=== PATIENT | male | born 1950 | race Caucasian/White ===

== ENCOUNTER 2017-01-07 17:03 | Emergency (ER) | payer MEDICARE, OTHER ==
[2017-01-07] MEDS ORDERED: SODIUM CHLORIDE 0.9% 1,000 ML IV ONE (17:36)
[2017-01-07] MEDS ORDERED: predniSONE 20 MG TABLET PO STA (17:36)
[2017-01-07] MEDS ORDERED: ALBUTEROL NEB 2.5 MG/3 ML INH STA ×2 (17:36→19:30)
[2017-01-07] MEDS ORDERED: ACETAMINOPHEN 325 MG TABLET PO STA (17:42)
[2017-01-07] MEDS ORDERED: ALBUTEROL NEB 2.5 MG/3 ML INH ONE (17:51)
[2017-01-07] MEDS ORDERED: predniSONE 20 MG TABLET ONE (18:31)
[2017-01-07] MEDS ORDERED: ACETAMINOPHEN 325 MG TABLET PO ONE (18:32)
[2017-01-07] MEDS ORDERED: ALBUTEROL 8 GM INHALER INH STA (18:55)
[2017-01-07] MEDS ORDERED: ALBUTEROL 8 GM INHALER INH ONE (19:25)
[2017-01-07] MEDS ORDERED: LEVALBUTEROL 1.25 MG INH STA (19:31)
[2017-01-07] MEDS ORDERED: LEVALBUTEROL 1.25 MG INH ONE (19:32)
== END 2017-01-07 21:11 | disposition home or self-care (01) ==
DX: J06.9 Acute upper respiratory infection, unspecified (principal); B97.89 Other viral agents as the cause of diseases classified elsewhere; J44.1 Chronic obstructive pulmonary disease with (acute) exacerbation; J45.901 Unspecified asthma with (acute) exacerbation; I10 Essential (primary) hypertension; Z86.010 Personal history of colon polyps; Z87.442 Personal history of urinary calculi; Z87.891 Personal history of nicotine dependence
CPT/HCPCS: 36415; 71010; 80053; 83690; 85025; 93005; 93010; 94640; 99283; 99284; A9270; J7512; J7613

== ENCOUNTER 2017-05-16 08:00 | Outpatient (CLI) | payer MEDICARE ==
--- NOTE | 2017-05-16 09:29 | Ultrasound Report ---
AORTA SCREENIN05/16/2017 CLINICAL INDICATION: Smoking history. TECHNIQUE: Real-time scanning was performed with business services sales representative static images obtained. FINDINGS: The abdominal aorta is normal in caliber, measuring 2.7 cm proximally , 1.9 cm in the mid portion, and 1.7 cm distally. The iliacs are normal in caliber. No free fluid is present. IMPRESSION: NO EVIDENCE OF ABDOMINAL AORTIC ANEURYSM. JOB #: [id number] [facility] JOB #: [id number] [facility]
== END 2017-05-16 08:01 | disposition home or self-care (01) ==
LOC: DI 08:00
PROVIDERS: ATTEND Physician Assistant
DX: Z13.6 Encounter for screening for cardiovascular disorders (principal); Z87.891 Personal history of nicotine dependence
CPT/HCPCS: 76706; 93005

== ENCOUNTER 2017-08-17 10:48 | Day surgery (SDC) | payer MEDICARE ==
[2017-08-17] MEDS ORDERED: LACTATED RINGERS 1,000 ML IV ONE (11:09)
[2017-08-17] MEDS ORDERED: fentaNYL 100 MCG/2 ML VIAL IVP ONE (12:06)
[2017-08-17] MEDS ORDERED: MIDAZOLAM 2 MG/2 ML VIAL IVP ONE (12:06)
[2017-08-17 13:16] VITALS: BP 118/81
== END 2017-08-17 10:49 | disposition home or self-care (01) ==
LOC: SDS 10:48
PROVIDERS: ATTEND Internal Medicine
PROC: 0DJD8ZZ Inspection of Lower Intestinal Tract, Via Natural or Artificial Opening Endoscopic (ICD-10-PCS; principal; 2017-08-17 12:00)
DX: R19.5 Other fecal abnormalities (principal); K62.89 Other specified diseases of anus and rectum
CPT/HCPCS: 45378; J7120

== ENCOUNTER 2018-01-05 02:01 | Emergency (ER) | payer MEDICARE ==
[2018-01-05 02:08] VITALS: BP 137/88
[2018-01-05] MEDS ORDERED: LIDOCAINE 2% 10 ML MDV SUBQ STA (02:10)
--- NOTE | 2018-01-05 02:51 | ED Physician Documentation ---
PD HPI LOWER EXT INJURY - Stated complaint Stated Complaint: R FOOT MIDDLE TOE INJURY - Chief complaint Chief Complaint: Ext Problem - History obtained from History obtained from: Patient, Family - History of Present Illness PD HPI LOW EXT INJURY LOCATION: Right, Toe Type of injury: Blunt / blow Where injury occurred: Home Timing - onset: Today Timing - details: Abrupt onset, Still present Worsened by: Moving, Palpating Similar symptoms before: Has not had sx before Recently seen: Not recently seen - Additional information Additional information: Patient is a 67 year old male with no significant past medical history who is presenting to the emergency department for toe pain. patient heard an alarm go off in his house so he got up to check on it. On his way back to bed he stubbed his toe causing deformity. Review of Systems Ten Systems: 10 systems reviewed and negative Musculoskeletal: reports: Extremity pain, Extremity swelling PD PAST MEDICAL HISTORY - Past Medical History Cardiovascular: None Respiratory: Asthma, COPD Neuro: None Endocrine/Autoimmune: None GI: None : None HEENT: None Psych: None Musculoskeletal: None Derm: None - Past Surgical History Past Surgical History: Yes General: Colonoscopy Ortho: Hip replacement HEENT: Tonsil/Adenoidectomy - Present Medications Home Medications: Ambulatory Orders Medication Instructions Recorded Confirmed Albuterol [Ventolin Hfa] 2 puffs INH Q4H PRN 03/28/13 08/16/17 Fluticasone 110 Mcg [Flovent] 2 puffs INH BID 09/22/16 08/17/17 - Allergies Allergies/Adverse Reactions: Allergies Allergy/AdvReac Type Severity Reaction Status Date / Time No Known Drug Allergies Allergy Verified 09/21/16 18:04 - Social History Does the pt smoke?: No Smoking Status: Never smoker Does the pt drink ETOH?: No Does the pt have substance abuse?: No - Immunizations Immunizations are current?: Yes PD ED PE NORMAL - Vitals Vital signs reviewed: Yes - General General: Alert and oriented X 3, No acute distress - HEENT HEENT: Atraumatic - Cardiac Cardiac: RRR - Respiratory Respiratory: No respiratory distress - Abdomen Abdomen: Soft - Derm Derm: Normal color - Neuro Neuro: Alert and oriented X 3 Eye Opening: Spontaneous Motor: Obeys Commands Verbal: Oriented GCS Score: 15 PD ED PE EXPANDED - Extremities Extremities: Right toe(s) (gross deformity of third digit rotated laterally ) Results - Vitals Vitals: Vital Signs - 24 hr 01/05/18 02:05 Temperature 36.5 C Heart Rate 68 Respiratory 15 Rate Blood Pressure 137/88 H O2 Saturation 99 Oxygen O2 Source Room air - Rads (name of study) toe x-ray Radiology: EMP read indepedently (fracture of third digit on right foot), EMP read contemporaneously Procedures - Reduction Body part reduced: Right, Toe Fracture or dislocation: Fracture Anesthesia: Digital block Reduction aftercare: NV intact, Alignment improved, Splint applied, Patient tolerated well PD MEDICAL DECISION MAKING - ED course Complexity details: reviewed old records, reviewed results, re-evaluated patient , considered differential, d/w patient, d/w family ED course: Patient was seen and examined at bedside. films were ordered. When patient returned the results were reviewed. there was a fracture of patient's third digit. digital block was performed and the fracture was reduced with good alignment. Patient's toes were william taped. patient was given detailed discharge and follow up instructions. patient required no further work up and was stable for discharge with outpatient follow up. Departure - Departure Disposition: 01 Home, Self Care Clinical Impression: Broken toe Condition: Good Instructions: ED Fx Toe Closed Follow-Up: Felix Bell MD [Provider Admit Priv/Credential] - Within 3 Days Comments: Your symptoms today are being caused by a broken toe. It has been splinted and can take 4-6 weeks to heal. You should call the orthopedic office tomorrow to schedule a follow up appointment. YOu can take motrin or tylenol as needed for pain. You should also ice your foot at least 4 times a day.
--- NOTE | 2018-01-05 03:03 | XRAY Preliminary Report ---
Exam: XR TOE(S) RT IMPRESSION: Moderate lateral angulated and minimally displaced fracture through the shaft of the thir d toe proximal phalanx. [facility] SITE ID: [id number]
--- NOTE | 2018-01-05 03:14 | XRAY Report ---
EXAM: RIGHT TOE RADIOGRAPHY EXAM DATE: 01/05/2018 02:36 AM. CLINICAL HISTORY: Deformity. COMPARISON: None. TECHNIQUE: 3 views. FINDINGS: Bones: There is a mild to moderate laterally angulated fracture through the shaft of the proximal pha lanx of the third toe. Minimal displacement. Joints: No dislocation. Soft Tissues: Mild localized soft tissue swelling. IMPRESSION: Moderate lateral angulated and minimally displaced fracture through the shaft of the third toe proxim al phalanx. [facility] Referring Provider Line: [phone] SITE ID: [id number]
== END 2018-01-05 03:03 | disposition home or self-care (01) ==
LOC: ED 02:01
DX: S92.511A Displaced fracture of proximal phalanx of right lesser toe(s), initial encounter for closed fracture (principal); W22.8XXA Striking against or struck by other objects, initial encounter; Y93.89 Activity, other specified; Y92.003 Bedroom of unspecified non-institutional (private) residence as the place of occurrence of the external cause
CPT/HCPCS: 28515; 73660; 99283

== ENCOUNTER 2018-02-23 13:43 | Outpatient (CLI) | payer MEDICARE ==
--- NOTE | 2018-02-23 14:13 | XRAY Report ---
TWO VIEW CHEST: 02/23/2018 CLINICAL INDICATION: Cough, fever, COPD. COMPARISON: 01/07/2017. FINDINGS: Frontal and lateral views of the chest demonstrate a normal cardiac silhouette. The lungs remain hyperinflated, compatible with COPD. There is patchy left basilar infiltrate, new from previous. No effusion or pneumothorax is seen. IMPRESSION: NEW PATCHY LEFT BASILAR INFILTRATE, SUPERIMPOSED UPON COPD. TD: 02/23/2018 14:03
== END 2018-02-23 13:44 | disposition home or self-care (01) ==
LOC: DI 13:43
PROVIDERS: ATTEND Registered Nurse
DX: R91.8 Other nonspecific abnormal finding of lung field (principal)
CPT/HCPCS: 71046

== ENCOUNTER 2018-03-06 14:39 | Outpatient (CLI) | payer MEDICARE ==
--- NOTE | 2018-03-06 20:12 | XRAY Report ---
CHEST, TWO VIEWS: 03/06/2018 HISTORY: Followup pneumonia. COMPARISON: 02/23/2018 FINDINGS: The patchy left basilar infiltrate has resolved. The lungs are now clear. No pleural effusion or pneumothorax. Heart size normal. Negative bony structures. IMPRESSION: NEGATIVE TWO VIEW CHEST X-RAY. TD: 03/06/2018 16:58
== END 2018-03-06 14:40 | disposition home or self-care (01) ==
LOC: DI.S 14:39
PROVIDERS: ATTEND Nurse Practitioner Family
DX: J18.9 Pneumonia, unspecified organism (principal)
CPT/HCPCS: 71046

== ENCOUNTER 2018-05-31 06:30 | Outpatient (CLI) | payer MEDICARE ==
[2018-05-31 06:58] LABS: CREATININE 0.9 mg/dL (0.6-1.2)
[2018-05-31] MEDS ORDERED: IOPAMIDOL-300 100 ML VIAL IVP ONE (07:33)
[2018-05-31] MEDS ORDERED: IOPAMIDOL-300 100 ML VIAL ONE (09:50)
--- NOTE | 2018-05-31 11:38 | CT Report ---
Reason: HEMATURIA, HEAVY SMOKING HX, PROSTATE CANCER Procedure Date: 05/31/2018 Accession Number: [id number] / [id number] Procedure: CT - IVP CPT Code: FULL RESULT: EXAM: CT ABDOMEN AND PELVIS WITHOUT AND WITH CONTRAST (CT IVP) EXAM DATE: 05/31/2018 07:46 AM. CLINICAL HISTORY: Hematuria, extensive smoking history, prostate cancer. COMPARISONS: CT abdomen and pelvis without contrast 09/21/2016. TECHNIQUE: Routine helical imaging was performed through the kidneys, ureters and bladder in the precontrast, postcontrast and delayed phase. IV Contrast: ISOVUE 300 100mL. Reconstructions: Coronal and sagittal. In accordance with CT protocol optimization, one or more of the following dose reduction techniques were utilized for this exam: automated exposure control, adjustment of mA and/or KV based on patient size, or use of iterative reconstructive technique. FINDINGS: Lung Bases: Interval development of patchy groundglass and consolidation at the left lower lobe. Right Kidney/Ureter: Multiple nonobstructing calculi measuring 3 mm or less. Inferior pole hypodensity which is too small to characterize, essentially unchanged compared to 2016. No hydronephrosis or solid enhancing masses. Left Kidney/Ureter: Multiple nonobstructing calculi measuring 3 mm or less. Inferior pole hypodensity which is too small to characterize, unchanged compared to 2016. No hydronephrosis or solid enhancing masses. Other Solid Organs: The liver, spleen, pancreas, gallbladder, and adrenal glands are unremarkable.The bile ducts are unremarkable. Peritoneal Cavity/Bowel: Normal. No free fluid, free air or adenopathy. No masses. Bowel loops are unremarkable. Pelvic Organs: Gas is seen non-dependently within the bladder and should be correlated to recent instrumentation. No definite gas within the bladder wall to suggest emphysematous cystitis. No bladder stones, obstruction or masses. Radiation seeds are seen within the prostate. Evaluation of pelvic organs is limited by streak artifact from the left total hip arthroplasty. Vasculature: Extensive abdominal aortic atherosclerosis without aneurysm. Bones: No aggressive osseous lesions are detected. Other: Complex scrotal hydrocele, possibly cystic solid mass, partially imaged. IMPRESSION: No renal or urothelial mass is detected. Left lower lobe airspace disease. Correlate gas within the bladder to recent instrumentation. Correlate partially imaged finding of complex scrotal hydrocele to physical examination to exclude mass. [facility]
== END 2018-05-31 06:31 | disposition home or self-care (01) ==
LOC: LAB 06:30 → DI 06:31
PROVIDERS: ATTEND Physician Assistant
DX: R31.9 Hematuria, unspecified (principal); Z85.46 Personal history of malignant neoplasm of prostate; Z87.891 Personal history of nicotine dependence
CPT/HCPCS: 36415; 74178; 82565; Q9967

== ENCOUNTER 2018-10-02 08:31 | Outpatient (CLI) | payer MEDICARE ==
--- NOTE | 2018-10-02 12:08 | XRAY Report ---
Reason: PAIN IN RIGHT HIP Procedure Date: 10/02/2018 Accession Number: [id number] / [id number] Procedure: XR - Hip w/Pelvis 2-3V RT CPT Code: FULL RESULT: EXAM: RIGHT HIP AND PELVIS RADIOGRAPHY EXAM DATE: 10/02/2018 09:05 AM. HISTORY: PAIN IN RIGHT HIP. COMPARISONS: Abdomen pelvis CT 09/21/2016. TECHNIQUE: 1 view of the pelvis and 1 view of the hip. FINDINGS: Bones: There are mild cystic changes of the right femoral head. There is no narrowing of the right hip joint. Joints: Left hip prosthesis is noted. Soft Tissues: There are prostate seeds. Atherosclerotic calcifications are noted. IMPRESSION: There are mild cystic changes of the right femoral head similar to the prior CT. Findings could represent early avascular necrosis. [facility]
== END 2018-10-02 08:32 | disposition home or self-care (01) ==
LOC: DI 08:31
PROVIDERS: ATTEND Internal Medicine
DX: M85.68 Other cyst of bone, other site (principal)

== ENCOUNTER 2019-10-12 13:05 | Outpatient (CLI) | payer MEDICARE ==
--- NOTE | 2019-10-12 14:24 | XRAY Report ---
Reason: RESPIRATORY TRACT INFECTION Procedure Date: 10/12/2019 Accession Number: [id number] / [id number] Procedure: XRS - Chest 2 View X-Ray CPT Code: 32315 Final Report FULL RESULT: EXAM: CHEST RADIOGRAPHY EXAM DATE: 10/12/2019 01:25 PM. CLINICAL HISTORY: RESPIRATORY TRACT INFECTION. COMPARISON: CHEST 2 VIEW 03/06/2018 2:58 PM. TECHNIQUE: 2 views. FINDINGS: Lungs/Pleura: No focal opacities evident. No pleural effusion. No pneumothorax. Hyperlucent, hyperinflated. Flattened hemidiaphragms. Increased AP diameter. Mediastinum: Heart and mediastinal contours are unremarkable. Other: None. IMPRESSION: 1. COPD. 2. No active cardiopulmonary disease [facility]
== END 2019-10-12 13:06 | disposition home or self-care (01) ==
LOC: DI.S 13:05
PROVIDERS: ATTEND Registered Nurse
DX: J44.9 Chronic obstructive pulmonary disease, unspecified (principal)
CPT/HCPCS: 71046

== ENCOUNTER 2021-03-31 09:07 | Outpatient (CLI) | payer MEDICARE ==
--- NOTE | 2021-03-31 13:41 | CT Report ---
PROCEDURE: Low Dose Lung Cancer Screen INDICATIONS: NICOTINE DEPENDENCY TECHNIQUE: Noncontrast low-dose 5 mm thick sections acquired from the pulmonary apices to the posterior costophr enic angles. 7 mm thick coronal and sagittal MIP reformats were then acquired. For radiation dose r eduction, the following was used: automated exposure control, adjustment of mA and/or kV according t o patient size. COMPARISON: CXR 10/12/2019, 10/06/2017, 12/24/2017. CT IVP 05/31/2018. FINDINGS: Image quality: Excellent. Lungs and pleura: -Left upper lobe nodular opacity measuring 2 x 1.3 cm, (4/65). Adjacent streaky opacity. -Right middle lobe pulmonary nodule measuring 0.5 cm, (4/250). -A few calcified granuloma. No acute airspace opacity. The airways are clear. No pleural effusion. No pneumothorax. Mediastinum: Heart size is normal. Moderate coronary artery calcifications. No pericardial effusion. No mediastinal adenopathy by size criteria. Thoracic aorta and central pulmonary arteries are norm al in size. Esophagus is normal in caliber. No hiatal hernia. Bones and chest wall: No suspicious bony lesions. No vertebral body compression fractures. No axil ean or supraclavicular adenopathy by size criteria. The thyroid is normal in size and there are no incidental findings. Abdomen: Small nonobstructing kidney stones, unchanged. Visualized upper abdomen solid organs and ramírez wel loops appear normal in the absence of contrast. IMPRESSION: 1. Left upper lobe nodular opacity measuring at 2 x 1.3 cm with surrounding streaky opacity. This cou ld represent a pulmonary nodule or versus scarring given its flattened appearance. -Recommend further characterization with PET/CT. 2. A few calcified granuloma. 3. No adenopathy. 4. Moderate coronary artery calcifications. Results were communicated to Diana Galloway at 03/31/2021 1:40 PM PDT. Reviewed by: Francisco Fowler MD on 03/31/2021 1:40 PM PDT Approved by: Francisco Fowler MD on 03/31/2021 1:40 PM PDT Station ID: [id number]
== END 2021-03-31 09:08 | disposition home or self-care (01) ==
LOC: DI 09:07
PROVIDERS: ATTEND Physician Assistant
DX: Z12.2 Encounter for screening for malignant neoplasm of respiratory organs (principal); R91.8 Other nonspecific abnormal finding of lung field; I25.10 Atherosclerotic heart disease of native coronary artery without angina pectoris; F17.210 Nicotine dependence, cigarettes, uncomplicated

== ENCOUNTER 2021-07-17 10:50 | Day surgery (SDC) | payer MEDICARE ==
[2021-07-17] MEDS ORDERED: LACTATED RINGERS 1,000 ML IV ONE ×2 (11:05→13:09)
--- NOTE | 2021-07-17 11:22 | ANESTHESIA ---
Pre-Anesthesia VS, & Labs - Diagnosis + FIT - Procedure Colonoscopy Vital Signs: Temp Pulse Resp BP Pulse Ox 36.8 C 58 L 16 137/77 H 100 07/17/21 11:00 07/17/21 11:00 07/17/21 11:00 07/17/21 11:00 07/17/21 11:00 Height: 5 ft 9 in Weight (kg): 63 kg Body Mass Index: 20.5 BMI Classification: Healthy weight - NPO >8 hours Home Medications and Allergies Albuterol [Ventolin Hfa] 2 puffs INH Q4H PRN 03/28/13 Fluticasone 110 Mcg [Flovent] 2 puffs INH BID 09/22/16 Allergies/Adverse Reactions: Allergies Allergy/AdvReac Type Severity Reaction Status Date / Time No Known Drug Allergies Allergy Verified 07/17/21 11:15 Anes History & Medical History - Anesthetic History Anesthesia Complications: reports: No previous complications Family history of Anesthesia Complications: Denies Family history of Malignant Hyperthermia: Denies - Medical History Cardiovascular: reports: None Pulmonary: reports: Asthma, COPD Gastrointestinal: reports: None Urinary: reports: None Musculoskeletal: reports: None Endocrine/Autoimmune: reports: None Blood Disorders: reports: None Skin: reports: None Smoking Status: Never smoker - Surgical History General: reports: Colonoscopy Eyes Ears Nose Throat (EENT): reports: Tonsil/Adenoidectomy Orthopedic: reports: Hip replacement Exam General: Alert, Oriented x3, Cooperative Dental: Poor dentition, Other (multiple loose teeth) Mouth Openin Fingerbreadth Neck Mobility: Normal Mallampati classification: II Thyromental Distance: 4-6 cm Respiratory: Lungs clear Cardiovascular: Regular rate Plan Anesthesia Type: Total IV Consent for Procedure(s) Verified and Reviewed: Yes Code Status: Attempt Resuscitation ASA classification: 2-Mild systemic disease Is this case an emergency?: No
[2021-07-17] MEDS ORDERED: PROPOFOL 500 MG/50 ML 500 MG/50 ML VIAL ONE (11:23)
[2021-07-17] MEDS ORDERED: LIDOCAINE 1% ABBOJECT 50 MG/5 ML SYRINGE ONE (11:25)
--- NOTE | 2021-07-17 12:00 | HISTORY & PHYSICAL EXAMINATION ---
Chief Complaint - Chief Complaint Chief Complaint: positive fit History of Present Illness - History Obtained From Records Reviewed: yes History obtained from: pt Exam Limitations: none - History of Present Illness HPI Comment/Other: He has had colonoscopy in the distant past. He has history of prostate cancer treated with radiation 2012. He had a fit test that is positive History - Past Medical History Cardiovascular: reports: None Respiratory: reports: Asthma, COPD Endocrine/Autoimmune: reports: None GI: reports: None : reports: None HEENT: reports: None Psych: reports: None Musculoskeletal: reports: None Derm: reports: None MRSA Hx?: No - Past Surgical History General: reports: Colonoscopy Ortho: reports: Hip replacement HEENT: reports: Tonsil/Adenoidectomy Meds/Allgy - Home Medications Home Medications: Ambulatory Orders Medication Instructions Recorded Confirmed Albuterol [Ventolin Hfa] 2 puffs INH Q4H PRN 03/28/13 07/17/21 Fluticasone 110 Mcg [Flovent] 2 puffs INH BID 09/22/16 07/17/21 - Allergies Allergies/Adverse Reactions: Allergies Allergy/AdvReac Type Severity Reaction Status Date / Time No Known Drug Allergies Allergy Verified 07/17/21 11:15 Review of Systems - Other Findings Other Findings: 10 pt ros as above otherwise unremarkable Exam - Vital Signs Reviewed Vital Signs: Yes Vital Signs: Vital Signs x48h Temp Pulse Resp BP Pulse Ox 07/17/21 11:00 36.8 C 58 L 16 137/77 H 100 - Physical Exam General Appearance: positive: Alert Eyes Bilateral: positive: PERRL, EOMI Neck: positive: No JVD Respiratory: positive: No respiratory distress, Breath sounds nml Cardiovascular: positive: Regular rate & rhythm Abdomen: positive: Non-tender, No distention Neurologic/Psychiatric: positive: Oriented x3 Conclusion/Plan - Problem List (1) Colon cancer screening Conclusion/Plan: plan colonoscopy. parq held and consent obtained
[2021-07-17 13:24] VITALS: BP 159/58
--- NOTE | 2021-07-17 15:26 | ANESTHESIA POST OP EVALUATION ---
Anesthesia Post Eval - Post Anesthesia Eval Vitals: Last Vital Signs Temp 36.5 C 07/17/21 13:23 Pulse 59 L 07/17/21 13:23 Resp 16 07/17/21 13:23 BP 159/58 H 07/17/21 13:23 Pulse Ox 100 07/17/21 13:23 CV Function Including HR & BP: Stable Pain Control: Satisfactory Nausea & Vomiting: Negative Mental Status: Baseline Respiratory Status: Airway Patent Hydration Status: Satisfactory Anesthesia Complications: None
== END 2021-07-17 10:51 | disposition home or self-care (01) ==
LOC: SDS 10:50
PROVIDERS: ATTEND Surgery
DX: R19.5 Other fecal abnormalities (principal); K62.7 Radiation proctitis; J44.9 Chronic obstructive pulmonary disease, unspecified; Z85.46 Personal history of malignant neoplasm of prostate
CPT/HCPCS: 45378; J7120

== ENCOUNTER 2021-08-06 08:39 | Outpatient (CLI) | payer MEDICARE ==
--- NOTE | 2021-08-06 09:30 | CT Report ---
PROCEDURE: CHEST WO INDICATIONS: PULMONARY NODULE TECHNIQUE: Noncontrast 1mm axial images were acquired from the pulmonary apices to the posterior costophrenic an gles. Axial 5 mm soft tissue kernel reconstructions were performed as well as 8 mm axial MIP and cor onal and sagittal 5 mm reformations. For radiation dose reduction, the following was used: automate d exposure control, adjustment of mA and/or kV according to patient size. COMPARISON: CT chest dated 03/31/2021 FINDINGS: Lungs: There is redemonstrated ill-defined spiculated mass involving the left upper lobe measuring 3. 2 x 0.9 cm, with grossly unchanged appearance and size dating back to 03/31/2021. Scattered subsegment al scarring/atelectasis. No acute consolidation. Diffuse peribronchial cuffing suggestive of nonspec ific bronchitis and/or reactive airways disease. Unchanged appearance of 3 mm pleural based nodule in the right middle lobe on image 195/4. Pleura: No pleural effusion or pneumothorax. Heart: Normal. Mild coronary artery calcifications. Lymph nodes: Normal. Thyroid: Unremarkable Aorta: Normal in size. Pulmonary arteries: Normal. Esophagus: Normal. Bones: Diffuse spondolytic changes and facet arthropathy. No compression fracture. Upper abdomen: Presumed bilateral renal hilar vascular calcifications. No hydronephrosis. IMPRESSION: Unchanged appearance of masslike consolidation involving the left upper lobe, possibly scarring howev er cannot exclude malignancy at this point I'm given the absence of relevant more remote prior studie s, although unchanged since 03/31/2021. Recommend continued CT chest surveillance in 6 months Mild coronary atherosclerosis CLINICAL RECOMMENDATION STATEMENTS: In patients <35 years with an ITN detected on CT, MRI, or extrathyroidal ultrasound, the Committee re commends further evaluation with dedicated thyroid ultrasound if the nodule is "e1 cm and has no susp icious imaging features, and if the patient has normal life expectancy. In patients "e35 years with an ITN detected on CT, MRI, or extrathyroidal ultrasound, the Committee r ecommends further evaluation with dedicated thyroid ultrasound if the nodule is "e1.5 cm and has no s uspicious imaging features, and if the patient has normal life expectancy. (ACR, 2014) Reviewed by: Cristian Petersen MD on 08/06/2021 9:28 AM PDT Approved by: Cristian Petersen MD on 08/06/2021 9:28 AM PDT Station ID: [id number]
== END 2021-08-06 08:40 | disposition home or self-care (01) ==
LOC: DI 08:39
PROVIDERS: ATTEND Physician Assistant
DX: R91.8 Other nonspecific abnormal finding of lung field (principal); I25.10 Atherosclerotic heart disease of native coronary artery without angina pectoris

== ENCOUNTER 2022-04-26 08:42 | Outpatient (CLI) | payer MEDICARE ==
--- NOTE | 2022-04-26 10:25 | CT Report ---
PROCEDURE: CHEST WO INDICATIONS: SOLITARY NODULE OF LUNG TECHNIQUE: Noncontrast 1mm axial images were acquired from the pulmonary apices to the posterior costophrenic an gles. Axial 5 mm soft tissue kernel reconstructions were performed as well as 8 mm axial MIP and cor onal and sagittal 5 mm reformations. For radiation dose reduction, the following was used: automate d exposure control, adjustment of mA and/or kV according to patient size. COMPARISON: 08/06/2021 FINDINGS: Image quality: Excellent. Lungs and pleura: No acute air space opacities. No pleural effusions or pneumothorax. Left upper lo be spiculated nodule and surrounding scarring . The nodule measures 2.4 x 1.2 cm, previously 2.3 x 1. 3 cm. This has a flat appearance on coronal images and may represent an area of abnormally thick scar ring. Other smaller pulmonary nodules are also stable. Mediastinum: Heart size is normal. Coronary artery calcifications. No pericardial effusion. No medi astinal adenopathy by size criteria. Thoracic aorta and central pulmonary arteries are normal in siz e. Esophagus is normal in caliber. No hiatal hernia. Bones and chest wall: No suspicious bony lesions. No vertebral body compression fractures. No axil ean or supraclavicular adenopathy by size criteria. The thyroid is normal in size and there are no incidental findings. Abdomen: Small hiatal hernia. Partially seen nonobstructing renal calculi. IMPRESSION: Stable left upper lobe spiculated pulmonary nodule, with differential including abnormally thick scar . Further follow-up imaging is recommended to establish stability in 6 months. Reviewed by: Leonard Kimball MD on 04/26/2022 10:23 AM PDT Approved by: Leonard Kimball MD on 04/26/2022 10:23 AM PDT Station ID: [id number]
== END 2022-04-26 08:43 | disposition home or self-care (01) ==
LOC: DI 08:42
PROVIDERS: ATTEND Physician Assistant
DX: R91.1 Solitary pulmonary nodule (principal)

== ENCOUNTER 2022-12-17 18:42 | Outpatient (CLI) | payer MEDICARE ==
--- NOTE | 2022-12-17 23:00 | Ultrasound Report ---
PROCEDURE: Retroperitoneal INDICATIONS: RETAINED URETERAL STENT TECHNIQUE: Real-time scanning was performed of the retroperitoneal organs, with image documentation. COMPARISON: CT abdomen pelvis 09/15/2022 FINDINGS: Kidneys: Kidneys are normal in size. Right kidney measures 10.7 cm long; left kidney measures 10.2 cm long. Right renal cortical thickness is 1. cm; left renal cortical thickness is 1.7 cm. No solid masses, or obstruction. 10 mm nonobstructing right renal calcification is present. Questionable 6 mm calculus versus vascular calcification on the left. There is no visualized ureteral stent. Bladder: Pre-void bladder volume is 224 mL. Post-void residual is 15 mL. Pre-void images demonstra te no intraluminal masses or stones. On pre-void images, ureteral jets are noted with color Doppler interrogation. (Of note, ureteral jets may not be detectable in up to 25% of cases due to insufficie nt differences in specific gravity between ureteral and bladder urine). Miscellaneous: No free abdominal fluid. IMPRESSION: Nonobstructing bilateral renal calcifications No visualized ureteral stent. If concern persists, CT is recommended. Reviewed by: Tammy Hodges MD on 12/17/2022 10:58 PM PDT Approved by: Tammy Hodges MD on 12/17/2022 10:58 PM PDT Station ID: [id number]
== END 2022-12-17 18:43 | disposition home or self-care (01) ==
LOC: DI 18:42
PROVIDERS: ATTEND Urology
DX: N20.0 Calculus of kidney (principal)

== ENCOUNTER 2023-03-26 12:40 | Emergency (ER) | payer MEDICARE ==
[2023-03-26] MEDS ORDERED: KETOROLAC 15 MG/ML VIAL IVP STA (12:54)
[2023-03-26] MEDS ORDERED: SODIUM CHLORIDE 0.9% 1,000 ML IV STA (12:54)
[2023-03-26 12:57] LABS: BILIRUBIN,URINE NEGATIVE (NEGATIVE); GLUCOSE, URINE (UA) NEGATIVE (NEGATIVE); KETONES,URINE (UA) NEGATIVE (NEGATIVE); LEUKOCYTE ESTERASE, URINE NEGATIVE (NEGATIVE); NITRITE,URINE NEGATIVE (NEGATIVE); OCCULT BLOOD,URINE SMALL (NEGATIVE); PROTEIN,URINE NEGATIVE (NEGATIVE); UROBILINOGEN,URINE 0.2 (NORMAL) E.U./dL (NORMAL)
--- NOTE | 2023-03-26 12:57 | ED Physician Documentation ---
PD HPI ABD PAIN - Stated complaint Stated Complaint: FT FLANK PLAN - Chief complaint Chief Complaint: Abd Pain - History obtained from History obtained from: Patient - Additional information Additional information: 72-year-old gentleman with history of COPD and renal colic with a 5 mm left ureteral stone in September status post removal in November. Developed sudden onset right lower quadrant pain this morning associated with nausea. No urinary complaints. Also has worse than normal cough for him. PD PAST MEDICAL HISTORY - Past Medical History Cardiovascular: None Respiratory: Asthma, COPD Endocrine/Autoimmune: None GI: None : None HEENT: None Psych: None Musculoskeletal: None Derm: None - Past Surgical History Past Surgical History: Yes General: Colonoscopy Ortho: Hip replacement HEENT: Tonsil/Adenoidectomy - Present Medications Home Medications: Ambulatory Orders Medication Instructions Recorded Confirmed Albuterol [Ventolin Hfa] 2 puffs INH Q4H PRN 03/28/13 03/26/23 Fluticasone 110 Mcg [Flovent] 2 puffs INH BID 09/22/16 03/26/23 Oxycodone HCl/Acetaminophen 1 - 2 each PO Q6H PRN #20 tablet 03/26/23 [Percocet 5-325 mg Tablet] - Allergies Allergies/Adverse Reactions: Allergies Allergy/AdvReac Type Severity Reaction Status Date / Time No Known Drug Allergies Allergy Verified 03/26/23 12:47 - Social History Does the pt smoke?: No Smoking Status: Former smoker Does the pt drink ETOH?: No Does the pt have substance abuse?: No - Immunizations Immunizations are current?: Yes - POLST Patient has POLST: No PD ED PE NORMAL - Vitals Vital signs reviewed: Yes - General General: Alert and oriented X 3, No acute distress - Respiratory Respiratory: Other (Mildly wheezy and rhonchorous throughout without focal findings, nonlabored breathing) - Abdomen Abdomen: Non tender - Back Back: No CVA TTP - Neuro Neuro: Alert and oriented X 3, Normal speech Results - Vitals Vitals: Vital Signs - 24 hr 03/26/23 03/26/23 12:43 13:19 Temperature 36.3 C L Heart Rate 66 59 L Respiratory 18 15 Rate Blood Pressure 154/57 H 140/67 H O2 Saturation 100 100 Oxygen O2 Source Room air - Labs Labs: Laboratory Tests 03/26/23 03/26/23 03/26/23 12:51 13:05 13:05 WBC 10.5 RBC 4.93 Hgb 15.0 Hct 46.0 MCV 93.3 MCH 30.4 MCHC 32.6 RDW 14.6 Plt Count 258 MPV 9.3 Neut # (Auto) 8.3 H Lymph # (Auto) 1.2 L [place] # (Auto) 0.7 Eos # (Auto) 0.3 Baso # (Auto) 0.0 Absolute Nucleated RBC 0.00 Nucleated RBC % 0.0 Sodium 140 Potassium 4.2 Chloride 107 Carbon Dioxide 25 Anion Gap 8.0 BUN 20 Creatinine 1.1 Estimated GFR (MDRD) 66 L Glucose 96 Calcium 8.8 Total Bilirubin 0.8 AST 35 ALT 20 Alkaline Phosphatase 67 Total Protein 7.6 Albumin 4.2 Globulin 3.4 Albumin/Globulin Ratio 1.2 Urine Color YELLOW Urine Clarity CLEAR Urine pH 7.0 Ur Specific [place] 1.020 Urine Protein NEGATIVE Urine Glucose (UA) NEGATIVE Urine Ketones NEGATIVE Urine Occult Blood SMALL H Urine Nitrite NEGATIVE Urine Bilirubin NEGATIVE Urine Urobilinogen 0.2 (NORMAL) Ur Leukocyte Esterase NEGATIVE Urine RBC 11-25 H Urine WBC 6-10 H Ur Squamous Epith Cells RARE Squamous Urine Bacteria Few Ur Microscopic Review INDICATED Urine Culture Comments NOT INDICATED - Rads (name of study) 2 view chest x-ray is unremarkable. Relevant Findings:: Final report received, EMP independent interpretation of test CT IVP Relevant Findings:: Final report received, EMP independent interpretation of test PD Medical Decision Making - ED course ED course: 72-year-old gentleman with history of renal colic presents with symptoms concerning for same. Initially he did not want any narcotics was medicated with Toradol with incomplete relief of pain and requested something else after a milligram of IV Dilaudid he was pain-free. Work-up here in the department shows unremarkable CBC, CMP, and small blood with just a few white cells on UA. CT abdomen and pelvis demonstrating an 8 x 10 right UPJ stone with multiple nephroliths. Patient was so counseled and given a copy of his CAT scan read and CD with CAT scan images on it for help with follow-up with his urologist. Departure - Departure Disposition: 01 Home, Self Care Clinical Impression: Renal colic Condition: Good Record reviewed to determine appropriate education?: Yes Instructions: ED Stone Renal W Colic Follow-Up: Jose Castaneda MD [Provider Admit Priv/Credential] - Prescriptions: Oxycodone HCl/Acetaminophen [Percocet 5-325 mg Tablet] 1 - 2 each PO Q6H PRN #20 tablet PRN Reason: pain Comments: I sent your prescription electronically to [facility] in [place]. You should restart the Flomax previously prescribed by your urologist today. As discussed, CAT scan shows multiple nephroliths in both kidney and the current issue is an 8 x 10 mm stone at the right ureteropelvic junction. You should follow-up with your urologist calling on Tuesday for next available appointment. You can also try the new urologist here. I am prescribing a short course of narcotic pain medication for you. These are potentially dangerous and addictive medications that should be used carefully. These medications may constipate you. Take an adoq-nlk-eydbobj stool softener (docusate) twice daily with plenty of water while taking these medications. If you go 24 hours without a bowel movement, take vtwm-ubi-edszyie miralax, per package instructions. Do not drink or drive while taking these medications. If you received narcotic or sedating medications while in the emergency department, do not drive for 24 hours. Store this medication in a safe, secure place and out of reach of children. It is a violation of federal law to give or sell this medication to another person or to use in a manner other than prescribed. The ED will not refill narcotic prescriptions, including prescriptions lost or stolen. To dispose of unwanted medications: 1. [facility] provides a drop box for medication in pill form only (no liquids) 8:00 am to 4:30 p.m. Tuesday-Tuesday in the lobby of the [facility], [address] [place] [address]. Empty pills into ziplock bag before disposal. Call [phone] for information. 2.[employer] is a free service available to all [facility] residents. Go to [email or web address] Note that many narcotic pain relievers also contain Tylenol/acetaminophen. Please ensure that your total dose of acetaminophen from all sources does not exceed 3 g (3000 mg) per day.
[2023-03-26 13:00] LABS: CLARITY,URINE CLEAR (CLEAR)
[2023-03-26] MEDS ORDERED: iohexoL-300 100 ML VIAL ONE (13:03)
[2023-03-26 13:04] LABS: BACTERIA,URINE Few /HPF (None Seen); SQUAMOUS EPITHELIAL CELL,UR RARE Squamous (<= Few)
[2023-03-26 13:13] LABS: BASOPHILS % (AUTO) 0.3 %; EOSINOPHILS # (AUTO) 0.3 10^3/uL (0.0-0.7); EOSINOPHILS % (AUTO) 2.5 %; LYMPHOCYTES # (AUTO) 1.2 10^3/uL (1.5-3.5); LYMPHOCYTES % (AUTO) 11.3 %; MEAN CORPUSCULAR HEMOGLOBIN 30.4 pg (27.0-31.0); MEAN CORPUSCULAR HGB CONC 32.6 g/dL (32.0-36.0); MEAN CORPUSCULAR VOLUME 93.3 fL (80.0-94.0); MEAN PLATELET VOLUME 9.3 fL (7.4-11.4); MONOCYTES # (AUTO) 0.7 10^3/uL (0.0-1.0); NEUTROPHILS # (AUTO) 8.3 10^3/uL (1.5-6.6); NEUTROPHILS % (AUTO) 78.6 %; PLT - PLATELET COUNT 258 10^3/uL (130-450); RED BLOOD COUNT 4.93 10^6/uL (4.70-6.10); RED CELL DISTRIBUTION WIDTH 14.6 % (12.0-15.0); WHITE BLOOD COUNT 10.5 x10^3/uL (4.8-10.8)
[2023-03-26 13:27] LABS: ALBUMIN 4.2 g/dL (3.2-5.5); ALBUMIN/GLOBULIN RATIO 1.2 (1.0-2.2); BILIRUBIN,TOTAL 0.8 mg/dL (0.2-1.0); CALCIUM 8.8 mg/dL (8.5-10.3); CREATININE 1.1 mg/dL (0.6-1.2); POTASSIUM 4.2 mmol/L (3.5-5.0); TOTAL PROTEIN 7.6 g/dL (6.7-8.2)
--- NOTE | 2023-03-26 13:43 | XRAY Report ---
PROCEDURE: Chest 2 View X-Ray INDICATIONS: cough TECHNIQUE: 2 views of the chest were acquired. COMPARISON: CT chest dated 04/26/2022 dominant Min[place]. FINDINGS: Surgical changes and devices: None. Lungs and pleura: No pleural effusions or pneumothorax. Lungs are clear. Linear scarring in the l eft upper lobe is similar to prior CT. Mediastinum: Mediastinal contours appear normal. Heart size is normal. Bones and chest wall: No suspicious bony lesions. Overlying soft tissues appear unremarkable. IMPRESSION: No acute cardiopulmonary process. Reviewed by: Juni Lebron on 03/26/2023 12:42 PM MARY ALICE Approved by: Juni Lebron on 03/26/2023 12:42 PM MARY ALICE Station ID: [id number]
[2023-03-26] MEDS ORDERED: iohexoL-300 100 ML VIAL IVP ONE (13:47)
[2023-03-26] MEDS ORDERED: HYDROmorphone 1 MG/ML CARPUJECT IVP STA (14:06)
--- NOTE | 2023-03-26 14:55 | CT Report ---
PROCEDURE: IVP INDICATIONS: R abd pain CONTRAST: 140ml omni 300 TECHNIQUE: After the administration of intravenous contrast, 5 mm thick sections acquired from the diaphragms to the symphysis. 5 mm thick coronal and sagittal reformats were acquired. For radiation dose reducti on, the following was used: automated exposure control, adjustment of mA and/or kV according to pedro ent size. COMPARISON: None. FINDINGS: Image quality: Excellent. Urinary system: Both kidneys are normal in size. No hydronephrosis or nephrolithiasis on pre-contras t images. No solid masses or complex cysts which require follow up. The opacified renal calyces and ureters appear normal, without filling defect. Bladder wall thickness is normal, accounting for unde rdistention. No calcified bladder stones. No filling defect within the opacified bladder. OTHER Lung bases and heart: Unremarkable. Liver: No solid mass. Gallbladder and biliary tree: Spleen: No splenomegaly. Pancreas: No pancreatic ductal dilation. Adrenals: No adrenal nodule. Kidneys: 8 x 10 mm calculus in the right UPJ with mild right hydronephrosis. Multiple bilateral nonob structing calculi in the kidneys some of which are probably arterial calcifications. Bowel and peritoneum: The distal esophagus, stomach, small bowel, is normal. The large bowel has incr eased stool throughout consistent with constipation. Abdominal Lymph nodes: No central or retroperitoneal adenopathy. Vessels: Unremarkable. Reproductive organs: Radiation beads within the prostate. Pelvic Lymph nodes: Unremarkable. Bones: No aggressive osseous abnormality. Bilateral hip replacements. Other: None. IMPRESSION: 8 x 10 mm right UPJ calculus causing mild right hydronephrosis. \ Reviewed by: Juni Lebron on 03/26/2023 1:54 PM AKDT Approved by: Juni Lebron on 03/26/2023 1:54 PM AKDT Station ID: [id number]
[2023-03-26 15:20] VITALS: BP 121/75
== END 2023-03-26 15:15 | disposition home or self-care (01) ==
LOC: ED 12:40
DX: N13.2 Hydronephrosis with renal and ureteral calculous obstruction (principal); Z87.891 Personal history of nicotine dependence
CPT/HCPCS: 36415; 71046; 74178; 80053; 81001; 85025; 96374; 96375; 99284; 99285; J1170; Q9967; 81003; 87086

== ENCOUNTER 2023-03-31 09:21 | Outpatient (CLI) | payer MEDICARE ==
--- NOTE | 2023-03-31 17:35 | CT Report ---
PROCEDURE: CHEST WO INDICATIONS: LUNG NODULE TECHNIQUE: Noncontrast 1mm axial images were acquired from the pulmonary apices to the posterior costophrenic an gles. Axial 5 mm soft tissue kernel reconstructions were performed as well as 8 mm axial MIP and cor onal and sagittal 5 mm reformations. For radiation dose reduction, the following was used: automate d exposure control, adjustment of mA and/or kV according to patient size. COMPARISON: CT of the chest dated 04/26/2022 FINDINGS: Image quality: Excellent. Lungs and pleura: There is mild centrilobular emphysema with an apical predominance. The right lung i s clear. A spiculated, masslike scar is redemonstrated within the left upper lobe. This appears uncha nged from the study dated 04/26/2022. No new suspicious pulmonary nodules or mass lesions. No new acut e airspace opacities. No pleural effusions. No pneumothorax. Mediastinum: Heart size is normal. No pericardial effusion. No large vessel abnormality. No mediastin al adenopathy by size criteria. Chest wall and lower neck: Thyroid is unremarkable. No axillary or supraclavicular adenopathy by size . Bones: There is a new, mild compression deformity at the superior T12 endplate when compared with the prior CT dated 04/26/2022. Upper Abdomen: There is moderate right hydronephrosis which is similar to the study dated 03/26/2023. IMPRESSION: 1. Stable spiculated masslike scar within the left upper lobe when compared with the prior study. 2. New, mild compression deformity at the superior T12 endplate when compared with the prior study. 3. Right hydronephrosis unchanged from the prior abdominal CT. Reviewed by: Shannon Snyder MD on 03/31/2023 5:33 PM PDT Approved by: Shannon Snyder MD on 03/31/2023 5:33 PM PDT Station ID: [id number]
== END 2023-03-31 09:22 | disposition home or self-care (01) ==
LOC: DI 09:21
PROVIDERS: ATTEND Physician Assistant
DX: J98.4 Other disorders of lung (principal); N13.30 Unspecified hydronephrosis

== ENCOUNTER 2023-04-01 11:19 | Outpatient (CLI) | payer MEDICARE ==
[2023-04-01 11:26] LABS: BILIRUBIN,URINE NEGATIVE (NEGATIVE); GLUCOSE, URINE (UA) NEGATIVE (NEGATIVE); KETONES,URINE (UA) NEGATIVE (NEGATIVE); LEUKOCYTE ESTERASE, URINE NEGATIVE (NEGATIVE); NITRITE,URINE NEGATIVE (NEGATIVE); OCCULT BLOOD,URINE MODERATE (NEGATIVE); PH,URINE 5.5 PH (5.0-7.5); PROTEIN,URINE TRACE mg/dL (NEGATIVE); UROBILINOGEN,URINE 0.2 (NORMAL) E.U./dL (NORMAL)
[2023-04-01 11:37] LABS: BACTERIA,URINE Rare /HPF (None Seen); CLARITY,URINE CLEAR (CLEAR); SQUAMOUS EPITHELIAL CELL,UR NONE SEEN (<= Few)
== END 2023-04-01 11:20 | disposition home or self-care (01) ==
LOC: LAB 11:19
PROVIDERS: ATTEND Urology
DX: N20.0 Calculus of kidney (principal)
CPT/HCPCS: 81001; 87086

== ENCOUNTER 2023-07-28 08:00 | Outpatient (CLI) | payer MEDICARE ==
--- NOTE | 2023-07-28 14:43 | XRAY Report ---
PROCEDURE: Abdomen 1 View (KUB) INDICATIONS: KIDNEY STONES TECHNIQUE: One view of the abdomen acquired. COMPARISON: CT IVP dated 03/26/2023. FINDINGS: Surgical changes and devices: Bilateral hip arthroplasty. Radiation seeds project in the lower pelvis . Bowel: Bowel gas pattern is nonobstructive. Soft tissues: A few small faint calcifications project over the right renal shadow likely correlatin g with previously seen right-sided nephroliths. Previously seen 5 mm right UPJ is not definitively vi sualized and presumably passed. No other suspicious abdominal calcifications. Visualized solid organ contours appear normal in size. Bones: No suspicious bony lesions. IMPRESSION: No acute abdominal pathology. Punctate calcifications projecting over the right renal shadow likely r epresenting previously seen right-sided nephroliths. Reviewed by: Vicente Marie MD on 07/28/2023 2:42 PM PDT Approved by: Vicente Marie MD on 07/28/2023 2:42 PM PDT Station ID: [id number]
== END 2023-07-28 23:59 | disposition home or self-care (01) ==
LOC: DI.WOS 08:00
PROVIDERS: ATTEND Urology
DX: N20.0 Calculus of kidney (principal)

== ENCOUNTER 2024-05-03 11:09 | Outpatient (CLI) | payer MEDICARE ==
--- NOTE | 2024-05-04 12:53 | CT Report ---
PROCEDURE: Lung Cancer Screen INDICATIONS: EX SMOKER TECHNIQUE: A CT scan of the chest was performed. Intravenous contrast media was not administered. Images were re corded and evaluated at appropriate window settings. Reformats: axial MIP of the chest, coronal and s agittal. For radiation dose reduction, the following was used: automated exposure control, adjustment of mA and/or kV according to patient size. COMPARISON: 03/31/2021 FINDINGS: Lungs and pleura: No pleural effusions. No pneumothorax. Left upper lobe nodular scarring there is a 1.2 x 1.9 cm. Right middle lobe 5 mm nodule in the prior exam has resolved. New pleural based 4 mm nodule right middle lobe image . Additional left lower lobe pleural-based a 4 mm nodule is s table from the prior. Underlying pulmonary emphysema is also stable. Scattered calcified granulomas s table as well. Mediastinum: Heart size is normal. No pericardial effusion. No large vessel abnormality. No mediastin al adenopathy by size criteria. Chest wall and lower neck: Thyroid is unremarkable. No axillary or supraclavicular adenopathy by size . Bones: No aggressive osseous abnormality. Upper Abdomen: Unremarkable. IMPRESSION: New pleural-based right middle lobe 4 mm nodule. Additional nodular left upper lobe probable scarring in smaller scattered nodules are stable. Lung RAD: 3 - Probably Benign. Recommendation: Continue screening in 6 Months with LDCT Non-Lung Significant Findings: Stable calcified granulomas and pulmonary emphysema . Reviewed by: Ja Kovacs MD on 05/04/2024 11:52 AM MARY ALICE Approved by: Ja Kovacs MD on 05/04/2024 11:52 AM AKDT Station ID: [id number]
== END 2024-05-03 11:10 | disposition home or self-care (01) ==
LOC: DI 11:09
PROVIDERS: ATTEND Registered Nurse
DX: Z12.2 Encounter for screening for malignant neoplasm of respiratory organs (principal); Z87.891 Personal history of nicotine dependence; R91.8 Other nonspecific abnormal finding of lung field

== ENCOUNTER 2024-05-20 08:16 | Outpatient (CLI) | payer MEDICARE | END 2024-05-20 23:59 | disposition critical access hospital (66) | LOC: EMS 08:16 | DX: R42 Dizziness and giddiness (principal); R11.0 Nausea | CPT/HCPCS: A0425; A0429 ==

== ENCOUNTER 2024-05-20 08:49 | Emergency (ER) | payer MEDICARE ==
[2024-05-20 09:06] VITALS: O2SAT 100
[2024-05-20] MEDS: MECLIZINE 12.5 MG TABLET PO STA (09:07)
--- NOTE | 2024-05-20 09:18 | ED Physician Documentation ---
History of Present Illness - Stated complaint Stated Complaint: DIZZY - Chief complaint Chief Complaint: General - History obtained from History obtained from: Patient, EMS - History of Present Illness Timing: Today Pain level max: 3 Pain level now: 2 - Additonal information Additional information: Patient is a 73-year-old male who presents to the emergency department stating that he had a "sneezing fit" this morning afterwards he felt very dizzy like the room was spinning around him. If he lies still he is not dizzy but if he sits up or turns his head, becomes dizzy and feels like the room is spinning. No fevers. No chills. Did have nausea but no vomiting. No head injury. No headache. Patient states that he feels like his neck is sore from sneezing. No numbness or tingling. Review of Systems Constitutional: denies: Fever, Chills GI: reports: Nausea. denies: Vomiting Skin: denies: Rash Musculoskeletal: denies: Back pain Neurologic: denies: Focal weakness, Numbness, Seizure, Confused, Headache, Head injury, LOC PD PAST MEDICAL HISTORY - Past Medical History Cardiovascular: None Respiratory: Asthma, COPD Endocrine/Autoimmune: None GI: None : Kidney stones, Other HEENT: None Psych: None Musculoskeletal: None Derm: None - Past Surgical History Past Surgical History: Yes General: Colonoscopy Ortho: Hip replacement HEENT: Tonsil/Adenoidectomy - Present Medications Home Medications: Ambulatory Orders Medication Instructions Recorded Confirmed Albuterol [Ventolin Hfa] 2 puffs INH Q4H PRN 03/28/13 05/20/24 Ciclesonide [Alvesco] 1 puffs IH BID 04/01/23 05/20/24 Multivitamin 1 each PO DAILY 04/01/23 05/20/24 Fluticasone Propion/Salmeterol 1 each IH BID 05/20/24 05/20/24 [Advair 250-50 Diskus] - Allergies Allergies/Adverse Reactions: Allergies Allergy/AdvReac Type Severity Reaction Status Date / Time No Known Drug Allergies Allergy Verified 05/20/24 09:09 - Social History Does the pt smoke?: No Smoking Status: Never smoker Does the pt drink ETOH?: Yes ETOH Use: Beer Does the pt have substance abuse?: No - Immunizations Immunizations are current?: Yes - POLST Patient has POLST: No PD ED PE NORMAL - Vitals Vital signs reviewed: Yes - General General: Alert and oriented X 3, No acute distress - HEENT HEENT: PERRL, Moist mucous membranes - Neck Neck: Supple, no meningeal sign - Cardiac Cardiac: RRR, Strong equal pulses - Respiratory Respiratory: No respiratory distress, Clear bilaterally - Abdomen Abdomen: Soft, Non tender, Non distended - Derm Derm: Warm and dry - Extremities Extremities: No edema - Neuro Neuro: Alert and oriented X 3, psychiatry instructor 2-12 intact, No motor deficit, No sensory deficit, Normal speech, Other (Positive Hallpike to the right, horizontal nystagmus) Eye Opening: Spontaneous Motor: Obeys Commands Verbal: Oriented GCS Score: 15 - Psych Psych: Normal mood, Normal affect Results - Vitals Vitals: Vital Signs - 24 hr 05/20/24 05/20/24 05/20/24 08:57 13:00 13:15 Temperature 36.8 C Heart Rate 64 57 L 53 L Respiratory 18 18 11 L Rate Blood Pressure 138/69 H 164/66 H 144/65 H O2 Saturation 100 100 100 05/20/24 05/20/24 05/20/24 13:30 13:45 14:00 Temperature Heart Rate 59 L 63 56 L Respiratory 18 14 11 L Rate Blood Pressure 138/78 H 134/66 H 131/70 H O2 Saturation 100 100 100 Oxygen O2 Source Room air - Labs Labs: Laboratory Tests 05/20/24 05/20/24 05/20/24 11:10 11:10 11:10 WBC 6.7 RBC 4.64 L Hgb 15.0 Hct 45.7 MCV 98.5 H MCH 32.3 H MCHC 32.8 RDW 14.4 Plt Count 237 MPV 9.1 Neut # (Auto) 5.2 Lymph # (Auto) 0.9 L [place] # (Auto) 0.4 Eos # (Auto) 0.0 Baso # (Auto) 0.0 Absolute Nucleated RBC 0.00 Nucleated RBC % 0.0 PT 11.3 INR 1.0 APTT 29.0 Sodium 140 Potassium 3.7 Chloride 109 Carbon Dioxide 24 Anion Gap 7.0 BUN 16 Creatinine 0.8 Estimated GFR (MDRD) 95 Glucose 111 H Calcium 8.8 Total Bilirubin 0.5 AST 17 ALT 12 Alkaline Phosphatase 51 Total Protein 6.4 Albumin 3.9 Globulin 2.5 Albumin/Globulin Ratio 1.6 Lipase 29 - Rads (name of study) head CT Relevant Findings:: Final report received, See rad report CTA head and neck Relevant Findings:: Final report received, See rad report PD Medical Decision Making - ED course Complexity details: reviewed results, re-evaluated patient, considered differential, d/w patient, d/w security consultant ED course: Patient presents with what sounds like vertigo after a sneezing fit this morning. He is not on any medications at home. He was given meclizine and the dizziness resolved, however when he stood up and walked he felt nauseated again and vomited. Did not have any difficulty walking however. Therefore laboratory testing was performed, CT head and CT angiogram head and neck were performed. 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 Patient was then activated as a code stroke. He did state that the dizziness is still mostly resolved. Not a tPA/TNK candidate. The images were reviewed by Dr. Bonner, neurology, she spoke with the interventional list at [facility], they would like him transferred down to [facility] for IR. He was given aspirin and started on a heparin drip. They requested no bolus, but start the drip at 12 units/kg/h. COBRA forms completed. This document was made in part using voice recognition software. While efforts are made to proofread this document, sound alike and grammatical errors may occur. Departure - Departure Disposition: 02 Transfer Acute Care Hosp Clinical Impression: Vertigo Vertebral artery occlusion Qualifiers: Laterality: right Qualified Code(s): I65.01 - Occlusion and stenosis of right vertebral artery Condition: Good Forms: PCP List NIHSS - Time Time: 09:00 - Level of Consciousness Level of consciousness: (0) Alert, Keenly responsive LOC Questions: (0) Answers both Q's correct LOC Commands: (0) Performs both correctly - Gaze Best Gaze: (0) Normal - Visual Visual: (0) No loss - Facial Palsy Facial Palsy: (0) Normal, symmetrical movement - Motor Arms (both separate) Motor Arm (right): (0) No drift Motor Arm (left): (0) No drift - Motor Legs (both separate) Motor Leg (right): (0) No drift Motor Leg (left): (0) No drift - Limb Ataxia Limb Ataxia: (0) Absent - Sensory Sensory: (0) Normal - Best Language Best Language: (0) No aphasia - Dysarthria Dysarthria: (0) Normal - Extinction and Inattention (formally neg Extinction and inattention: (0) No abnormality - Total Score/Results Total Score/Result: 0
[2024-05-20] MEDS: ONDANSETRON ODT 4 MG TABLET TL STA (10:34)
[2024-05-20 11:15] LABS: BASOPHILS % (AUTO) 0.3 %; EOSINOPHILS % (AUTO) 0.5 %; HCT - HEMATOCRIT 45.7 % (42.0-52.0); LYMPHOCYTES # (AUTO) 0.9 10^3/uL (1.5-3.5); MEAN CORPUSCULAR HEMOGLOBIN 32.3 pg (27.0-31.0); MEAN CORPUSCULAR HGB CONC 32.8 g/dL (32.0-36.0); MEAN CORPUSCULAR VOLUME 98.5 fL (80.0-94.0); MEAN PLATELET VOLUME 9.1 fL (7.4-11.4); MONOCYTES # (AUTO) 0.4 10^3/uL (0.0-1.0); MONOCYTES % (AUTO) 6.3 %; NEUTROPHILS # (AUTO) 5.2 10^3/uL (1.5-6.6); NEUTROPHILS % (AUTO) 78.6 %; PLT - PLATELET COUNT 237 10^3/uL (130-450); RED BLOOD COUNT 4.64 10^6/uL (4.70-6.10); RED CELL DISTRIBUTION WIDTH 14.4 % (12.0-15.0); WHITE BLOOD COUNT 6.7 x10^3/uL (4.8-10.8)
[2024-05-20 11:29] LABS: ALBUMIN 3.9 g/dL (3.2-5.5); ALBUMIN/GLOBULIN RATIO 1.6 (1.0-2.2); BILIRUBIN,TOTAL 0.5 mg/dL (0.2-1.0); CALCIUM 8.8 mg/dL (8.5-10.3); CREATININE 0.8 mg/dL (0.6-1.3); POTASSIUM 3.7 mmol/L (3.5-4.5); TOTAL PROTEIN 6.4 g/dL (6.4-8.9)
[2024-05-20] MEDS ORDERED: iohexoL-300 100 ML VIAL ONE (11:30)
--- NOTE | 2024-05-20 12:47 | CT Report ---
PROCEDURE: Head WO INDICATIONS: dizzy TECHNIQUE: Helical axial CT of the brain was obtained without contrast and reformatted in multiple p lanes. Radiation dose reduction was achieved using automated exposure control or adjustment of mA and /or kV according to patient size. COMPARISON: None FINDINGS: CSF spaces: Ventricles are appropriate in size and position. No hydrocephalus. Basal cisterns unre markable. Brain: No midline shift. No intracranial masses or hemorrhage. Ervin-white matter interface is norm al. Hyperdensity noted in the proximal basilar artery Skull and face: Calvarium and skull base are unremarkable without suspicious lesion. Sinuses: Visualized sinuses and mastoids are clear. IMPRESSION: Hyperdensity in the proximal basilar artery corresponds with occlusion on the concurrent CT angiogram . No evidence of parenchymal cerebellar density changes Note: Critical results were discussed with Dr. Castellanos on 05/20/2024 at 11:45 AM AK time. Reviewed by: Ja Kovacs MD on 05/20/2024 11:46 AM AKDT Approved by: Ja Kovacs MD on 05/20/2024 11:46 AM AKDT Station ID: [id number]
--- NOTE | 2024-05-20 13:00 | CT Report ---
PROCEDURE: Angio Head/Neck INDICATIONS: dizziness, neck pain TECHNIQUE: Helical axial CT of the head and neck was obtained during the arterial phase of a intrave nous contrast injection utilizing an angiographic protocol. Multiplanar traditional and MIP reformat s were also obtained. Dose reduction techniques included either automated exposure control or adjustm ent of exposure parameters. COMPARISON: CT chest 05/03/2024 FINDINGS: Cerebral CT Angiogram: Internal carotid arteries: No acute findings. Intracranial ICA are patent with no significant steno sis. No occlusion. No aneurysm. Cavernous segment dense atherosclerotic plaque Anterior cerebral arteries: Unremarkable. No significant stenosis. No occlusion. No aneurysm. Middle cerebral arteries: Unremarkable. No significant stenosis. No occlusion. No aneurysm. Posterior cerebral arteries: Unremarkable. No significant stenosis. No occlusion. No aneurysm. Vertebrobasilar arteries: Intradural right vertebral artery is diminished in density, and occludes di stally. The left intradural vertebral artery terminates in the posterior inferior cerebellar artery. Distal right vertebral and proximal basilar artery is occluded. Basilar artery reconstitutes just pro ximal to the superior cerebellar arteries Dural venous sinuses: Unremarkable given phase of enhancement. Other: Arterial phase appearance of the brain parenchyma is unremarkable. Neck CT Angiogram: Internal carotid arteries: Atherosclerotic plaque in both proximal ICA results in less than 10% steno sis in the left proximal ICA utilizing NASCET criteria. No right stenosis. Common carotid arteries: Unremarkable. No significant stenosis. No dissection or occlusion. External carotid arteries: Unremarkable. No occlusion. Vertebral arteries: Unremarkable. No significant stenosis. No dissection or occlusion. Aortic Arch and Mediastinum: Partially visualized aortic arch unremarkable without evidence of aneury sm. Origins of the great vessels unremarkable. Other: Arterial phase soft tissues of the neck are unremarkable. Nodular scarring left upper lobe is stable from the prior exam. Underlying pulmonary emphysema noted. 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
[2024-05-20 13:01] LABS: PT - PROTHROMBIN TIME 11.3 secs (9.9-12.6)
[2024-05-20] MEDS: ASPIRIN 300 MG SUPP PR STA (13:22)
[2024-05-20] MEDS: ASPIRIN CHEW 81 MG TABLET PO STA (13:23)
[2024-05-20] MEDS: HEPARIN 25000UNITS/500ML (D5W) 25,000 UNIT/500 ML BAG IV ONE (13:36)
[2024-05-20 14:58] VITALS: BP 144/64
[2024-05-20] MEDS: iohexoL-300 100 ML VIAL IVP ONE (18:12)
== END 2024-05-20 14:30 | disposition short-term general hospital (02) ==
LOC: ED 08:49
DX: R42 Dizziness and giddiness (principal); I65.01 Occlusion and stenosis of right vertebral artery
CPT/HCPCS: 36415; 70450; 70496; 70498; 80053; 83690; 85025; 85610; 85730; 96374; 99284; 99285; A9270; Q0162; Q9967

== ENCOUNTER 2025-06-03 20:13 | Inpatient (IN) ==
--- NOTE | 2025-06-03 20:28 | ED Physician Documentation ---
History of Present Illness Stated complaint Stated Complaint: GEN WEAKNESS Chief complaint Chief Complaint: Abd Pain Additonal information Additional information: 74-year-old male was recently admitted at [facility] week of 05/21 where he underwent cystectomy and prostatectomy and bladder revision surgery. He has a urostomy in place as well as a LAMBERT drain he was seen here yesterday for generalized weakness comes back in today for ongoing worsening weakness to the point where he is unable to eat or drink much and so weak that he is unable to ambulate. He does endorse and some mild nausea as well as some twinges of discomfort that he describes as acid reflux. Denies any fevers or chills that he is aware of no nausea or vomiting Meds/Allgy Home Medications Ambulatory Orders Medication Instructions Recorded Confirmed albuterol sulfate 90 mcg/actuation 1 puff inhalation P RN Wheezing 03/28/13 06/04/25 aerosol inhaler (Ventolin HFA) fluticasone 250 mcg-salmeterol 50 1 inh inhalation BID 05/20/24 06/04/25 mcg/dose blistr powdr for inhalation (Advair Diskus) omeprazole magnesium 20 mg 20 mg PO DAILY 12/26/2411/27 capsule,delayed release (Acid [employer]or Relations Specialist (omeprazole)) telmisartan 20 mg tablet 20 mg PO DAILY 06/02/2511/27 apixaban 2.5 mg tablet (Eliquis) 2.5 mg PO BID 5 06/04/25 Allergies Allergies Allergy/AdvReac Type Severity Reaction Status Date / Time No Known Drug Allergies Allergy Verified 06/03/25 20:22 [facility] Active Problems All Active Problems (Updated 06/04/25 @ 07:46 by Isidro Chi MD) Vomiting (Acute) Failure to thrive in adult (Acute) Acute hyperkalemia (Acute) ANTHONY (acute kidney injury) (Acute) Abdominal pain (Acute) ANTHONY (acute kidney injury) (Acute) Generalized weakness (Acute) Adjustment and management of vascular access device (Acute) Recurrent UTI (Acute) Allergic rhinitis (Acute) Dysuria (Acute) Healthcare maintenance (Acute) Encounter for antineoplastic chemotherapy (Acute) Asthma (Acute) Bladder cancer (Acute) Bladder stones (Acute) Prostate cancer (Acute) Medical History Medical History (Updated 06/04/25 @ 07:46 by Isidro Chi MD) Mesothelioma COPD (chronic obstructive pulmonary disease) Osteoarthritis Wears glasses History of kidney stones UTI (urinary tract infection) Abdominal pain Gastritis Polyarthritis Tobacco abuse counseling Asthma exacerbation Viral URI Broken toe Colon cancer screening History of CVA (cerebrovascular accident) History of prostate cancer Surgical History Surgical History History of urostomy H/O prostatectomy H/O total cystectomy History of colonoscopy History of bilateral total hip arthroplasty History of lithotripsy History of transurethral resection of bladder tumor (TURBT) History of kidney removal Social History Social History Smoking Status: Smoker current status unk If you are a former smoker, when did you quit? (Date/Year): 2009 Number of Years Smoked: 40 How many cigarettes a day do you smoke? (20 cigarettes=1 Pk): 20 Second hand tobacco smoke exposure: No Do you dip or chew tobacco?: No Do you vape?: No Patient requests smoking cessation consult: No Initiate information on smoking cessation: No Level: Independent Do you feel safe in your home environment?: Yes History of physical, verbal, emotional, or financial abuse?: No Frequency: Daily Substance Use: denies use Are you sexually active?: Yes POLST Patient has POLST: No Exam Exam Vital Signs: Vital Signs x48h Pulse Resp BP Pulse Ox 06/04/25 08:00 97 18 144/72 H 97 06/04/25 06:49 102 H 16 125/72 96 Constitutional abnormal general appearance (disheveled), (chronically ill), (appears older than stated age) and (frail appearing), no apparent distress, abnormal body habitus (underweight), no limitations and alert HENMT normocephalic Eyes PERRL Chest inspection of chest normal Respiratory breath sounds equal bilaterally, normal respiratory effort and clear to auscultation bilaterally Cardiovascular normal heart rate noted Gastrointestinal abdomen normal to inspection Urostomy in place no erythema Genitourinary no CVA tenderness Skin skin color normal Results Vitals Vitals: Vital Signs - 24 hr 06/03/25 20:17 06/03/25 20:22 06/04/25 00:05 Temperature 36 C L 36.4 C L Temperature Source Oral Temporal Artery Scan Pulse Rate 107 H 98 108 H Respiratory Rate 18 20 Blood Pressure 116/72 116/72 141/74 H O2 Saturation 97 95 95 O2 Source Room air Room air Room air Pain Intensity 3 2 06/04/25 00:45 06/04/25 01:08 06/04/25 01:20 Temperature Temperature Source Pulse Rate 123 H Respiratory Rate 17 Blood Pressure 136/82 H O2 Saturation 99 O2 Source Room air Pain Intensity 9 2 06/04/25 04:00 06/04/25 05:31 06/04/25 05:52 Temperature Temperature Source Pulse Rate 97 101 H Respiratory Rate 16 Blood Pressure 132/66 H 137/73 H O2 Saturation 96 98 O2 Source Room air Room air Pain Intensity 8 06/04/25 06:49 06/04/25 06:50 06/04/25 08:00 Temperature Temperature Source Pulse Rate 102 H 97 Respiratory Rate 16 18 Blood Pressure 125/72 144/72 H O2 Saturation 96 97 O2 Source Room air Room air Pain Intensity 0 0 0 Oxygen O2 Source Room air Labs Labs: Laboratory Tests 06/03/25 06/04/25 21:38 07:33 WBC 11.4 H 10.1 RBC 3.04 L 3.08 L Hgb 9.3 L 9.4 L Hct 29.7 L 29.9 L MCV 97.7 H 97.1 H MCH 30.6 30.5 MCHC 31.3 L 31.4 L RDW 14.6 14.7 Plt Count 334 299 MPV 8.5 8.4 Neut # (Auto) 10.0 H 8.9 H Lymph # (Auto) 0.7 L 0.6 L Moca # (Auto) 0.5 0.4 Eos # (Auto) 0.1 0.1 Baso # (Auto) 0.0 0.0 Absolute Nucleated RBC 0.00 0.00 Nucleated RBC % 0.0 0.0 Sodium 130 L 132 L Potassium 5.4 H 5.2 H Chloride 101 103 Carbon Dioxide 19 L 20 L Anion Gap 10.0 9.0 BUN 49 H 43 H Creatinine 3.3 H 3.0 H Estimated GFR (MDRD) 18 L 21 L Glucose 96 101 Calcium 8.5 8.4 L Magnesium 2.4 H 2.3 Total Bilirubin 0.2 AST 27 ALT 61 H Alkaline Phosphatase 102 Total Protein 6.2 L Albumin 3.3 Globulin 2.9 Albumin/Globulin Ratio 1.1 PD Medical Decision Making ED course ED course: 74-year-old male Comes in for generalized weakness overall failure to thrive poor p.o. intake. Workup is still being evaluated labs have been placed but due to change of shift report given to oncoming physician Dr. Espinoza will further be managing patient's care and ongoing plan. Discharge Plan Discharge Patient Disposition: 66 [facility] DC/Xfer Clinical Impression: ANTHONY (acute kidney injury), Acute hyperkalemia, Failure to thrive in adult, Vomiting Interventions: ED Admission Assessment Last Done: 06/04/25 09:20 Vitals documented within 30 minutes of discharge?: Yes
--- OUTSIDE RECORDS SUMMARY | 2025-06-03 20:29 | EXTERNAL MEDICAL SUMMARY RPT | Continuity of Care Document ---
Author Organization [place] Address [address] [place] [id number] Phone Problems date description facility 2024-07-31 11:58 Hematuria, unspecified [facility] 2025-03-11 13:13 Dissection of vertebral artery [facility] 2025-03-12 07:55 Malignant neoplasm of bladder n [facility] 2025-03-12 07:55 Malignant neoplasm of bladder, unspecified [facility] 2025-03-12 07:56 Malignant neoplasm of bladder n [facility] 2025-03-12 07:56 Malignant neoplasm of bladder, unspecified [facility] 2025-03-12 08:28 Malignant neoplasm of bladder n [facility] 2025-03-12 08:28 Malignant neoplasm of bladder, unspecified [facility] 2025-03-12 09:16 Malignant neoplasm of bladder n [facility] 2025-03-12 09:16 Malignant neoplasm of bladder, unspecified [facility] 2025-03-12 10:10 Malignant neoplasm of bladder n [facility] 2025-03-12 10:10 Malignant neoplasm of bladder, unspecified [facility] 2025-03-12 10:10 [facility] 2025-03-12 10:12 Malignant neoplasm of bladder n [facility] 2025-03-12 10:12 Malignant neoplasm of bladder, unspecified [facility] 2025-03-12 10:12 D[facility] 2025-03-12 13:29 Malignant neoplasm of bladder n [facility] 2025-03-12 13:29 Malignant neoplasm of bladder, unspecified [facility] 2025-03-12 13:29 [facility] 2025-03-13 08:53 Malignant neoplasm of bladder n [facility] 2025-03-13 08:53 [facility]ignant [facility]oplasm [facility] bladder, [facility] 2025-03-13 08:53 [facility]25-03-14 10:24 Malignant neoplasm of bladder, unspecified [facility] 2025-03-19 07:25 Malignant neoplasm of bladder, unspecified [facility] 2025-03-19 07:34 Malignant neoplasm of bladder n [facility] 2025-03-19 07:34 Malignant neoplasm of bladder, unspecified [facility] 2025-03-19 07:34 [facility] 2025-03-19 07:35 [facility]25-03-19 07:35 Malignant neoplasm of bladder, unspecified [facility] 2025-03-19 07:35 [facility] 2025-03-19 08:33 [facility] 2025-03-19 08:33 Malignant neoplasm of bladder, unspecified [facility] 2025-03-19 08:33 [facility] 2025-03-19 08:47 Malignant neoplasm of bladder, unspecified [facility] 2025-03-19 09:04 [facility] 2025-03-19 09:04 Malignant neoplasm of bladder, unspecified [facility] 2025-03-19 09:04 [facility]ervicalgia [facility] 2025-03-19 09:04 [facility]ausea [facility]25-03-19 09:04 [facility] 2025-03-19 09:04 Hematuria, unspecified [facility] 2025-03-19 09:04 Retention of urine, unspecified [facility] 2025-03-19 09:04 Dizziness and giddiness [facility] 2025-03-19 09:04 Laceration without f oreign body of left index finger without damage to nail, initial encounter [facility] 2025-03-19 09:49 [facility] 09:49 Malignant neoplasm of bladder, unspecified [facility] 2025-03-19 09:49 Dysuria [facility] 2025-03-20 00:03 Malignant neoplasm of bladder, unspecified [facility] 2025-03-20 08:33 Malignant neoplasm of prostate [facility] 2025-03-20 08:33 Malignant neoplasm of bladder n sh[facility] 2025-03-20 08:33 Malignant neoplasm of bladder, unspecified [facility] 2025-03-20 08:33 Dysuria [facility] 2025-03-20 10:09 Malignant neoplasm of prostate [facility] 2025-03-20 10:09 Malignant neoplasm of bladder n [facility] 2025-03-20 10:09 Malignant neoplasm of bladder, unspecified [facility] 2025-03-20 10:09 Dysuria [facility] 2025-03-22 06:27 Malignant neoplasm of prostate [facility] 2025-03-22 06:27 Malignant neoplasm of bladder n [facility] 2025-03-22 06:27 Malignant neoplasm of bladder, unspecified [facility] 2025-03-22 06:27 Dysuria [facility] 2025-03-26 16:25 Dysuria [facility] 2025-03-26 16:25 Frequency of micturition [facility] 2025-03-26 16:25 Fever, unspecified [facility] 2025-03-27 07:22 Malignant neoplasm of bladder, unspecified [facility] 2025-03-27 07:41 Malignant neoplasm of prostate [facility] 2025-03-27 07:41 Malignant neoplasm of bladder n [facility] 2025-03-27 07:41 Malignant neoplasm of bladder, unspecified [facility] 2025-03-27 07:41 Dysuria [facility] 2025-03-27 07:42 Malignant neoplasm of prostate [facility] 2025-03-27 07:42 Malignant neoplasm of bladder n [facility] 2025-03-27 07:42 Malignant neoplasm of bladder, unspecified [facility] 2025-03-27 07:42 Dysuria [facility] 2025-03-27 07:56 Malignant neoplasm of prostate [facility] 2025-03-27 07:56 Malignant neoplasm of bladder n [facility] [employer] 2025-03-27 07:56 Malignant neoplasm of bladder, unspecified [facility] 2025-03-27 07:56 [facility]uria [facility] 2025-03-27 08:13 Malignant neoplasm of bladder, unspecified [facility] 2025-03-27 09:28 Malignant neoplasm of prostate [facility] 2025-03-27 09:28 Malignant neoplasm of bladder n [facility] [employer] 2025-03-27 09:28 Malignant neoplasm of bladder, unspecified [facility] 2025-03-27 09:28 [facility] 2025-03-27 11:50 Malignant neoplasm of prostate [facility] 2025-03-27 11:50 Malignant neoplasm of bladder n [facility] [employer] 2025-03-27 11:50 Malignant neoplasm of bladder, unspecified [facility] 2025-03-27 11:50 [facility]uria [facility] 2025-03-28 00:03 Malignant neoplasm of bladder, unspecified [facility] 2025-03-28 08:54 Malignant neoplasm of prostate [facility] 2025-03-28 08:54 Malignant neoplasm of bladder n [facility] [employer] 2025-03-28 08:54 Malignant neoplasm of bladder, unspecified [facility] 2025-03-28 08:54 [facility] 2025-03-28 11:39 Malignant neoplasm of prostate [facility] 2025-03-28 11:39 Malignant neoplasm of bladder n [facility] [employer] 2025-03-28 11:39 Malignant neoplasm of bladder, unspecified [employer] 2025-03-28 11:39 Dysuria [facility] 2025-04-08 10:58 Urinary tract infection, site n ot specified [employer] 2025-04-08 13:38 Allergic rhinitis, unspecified [facility] 2025-04-08 13:38 Unspecified asthma, uncomplicat ed [employer] 2025-04-08 13:38 Urinary tract infection, site n ot specified [facility] 2025-04-08 13:38 Dysuria [employer] 2025-04-09 00:01 Allergic rhinitis, unspecified [facility] 2025-04-09 00:01 Unspecified asthma, uncomplicat ed [facility] 2025-04-09 00:01 Urinary tract infection, site n ot specified [facility] 2025-04-09 00:01 [facility] 2025-04-09 00:03 Urinary tract infection, site n ot specified [facility] 2025-04-09 05:57 Allergic rhinitis, unspecified [facility] 2025-04-09 05:57 Unspecified asthma, uncomplicat ed [facility] 2025-04-09 05:57 Urinary tract infection, site n ot specified [facility] 2025-04-09 05:57 Dysuria [facility] 2025-04-09 06:01 Allergic rhinitis, unspecified [facility] 2025-04-09 06:01 Unspecified asthma, uncomplicat ed [facility] 2025-04-09 06:01 Urinary tract infection, site n ot specified [facility] 2025-04-09 06:01 [facility]uria [facility] 2025-04-10 10:46 Urinary tract infection, site n ot specified [facility] 2025-04-10 11:42 Urinary tract infection, site n ot specified [facility] 2025-04-18 11:23 Malignant neoplasm of prostate [facility] 2025-04-18 11:23 [facility] 2025-04[facility]18 11:23 Malignant neoplasm of bladder, unspecified [facility] 2025-04-18 11:23 D[facility]uria [facility] 2025-04-24 09:26 Malignant neoplasm of prostate [facility] 2025-04-24 09:26 Malignant neoplasm of bladder n sh[facility] 2025-04-24 09:26 Malignant neoplasm of bladder, unspecified [facility] 2025-04-24 09:26 [facility] 2025-04-24 09:27 Malignant neoplasm of prostate [facility] 2025-04-24 09:27 [facility] 2025-04-24 09:27 Malignant neoplasm of bladder, unspecified [facility] 2025-04-24 09:27 [facility]uria [facility] 2025-04-24 09:50 Malignant neoplasm of prostate [facility] 2025-04-24 09:50 Malignant neoplasm of bladder n [facility] [employer] 2025-04-24 09:50 Malignant neoplasm of bladder, unspecified [facility] 2025-04-24 09:50 [facility]uria [facility] 2025-04-24 11:14 Malignant neoplasm of prostate [facility] 2025-04-24 11:14 [facility] 2025-04-24 11:14 Malignant neoplasm of bladder, unspecified [facility] 2025-04-24 11:14 [facility] 2025-04-24 11:15 Malignant neoplasm of prostate [facility] 2025-04-24 11:15 Malignant neoplasm of bladder n [facility] [employer] 2025-04-24 11:15 Malignant neoplasm of bladder, unspecified [facility] 2025-04-24 11:15 [facility] 2025-04-24 11:28 Malignant neoplasm of prostate [employer] 2025-04-24 11:28 [facility] 2025-04-24 11:28 Malignant neoplasm of bladder, unspecified [facility] 2025-04-24 11:28 [facility] 2025-04-25 09:18 Malignant neoplasm of prostate [facility] 2025-04-25 09:18 [facility] 2025-04-25 09:18 Malignant neoplasm of bladder, unspecified [facility] 2025-04-25 09:18 Urinary tract infection, site n ot specified [employer] 2025-04-25 09:18 [facility] 2025-04-25 09:18 Encounter for genera l adult medical examination without abnormal findings [facility] 2025-04-25 09:47 Urinary tract infection, site n ot specified [employer] 2025-05-01 09:29 Malignant neoplasm of prostate [employer] 2025-05-01 09:29 Malignant neoplasm of bladder n [facility] 2025-05-01 09:29 Malignant neoplasm of bladder, unspecified [facility] 2025-05-01 09:29 Dysuria [facility] 2025-05-01 10:22 Malignant neoplasm of prostate [facility] 2025-05-01 10:22 Malignant neoplasm of bladder n shantelle [facility] 2025-05-01 10:22 Urinary tract infection, site n ot specified [facility] 2025-05-01 10:22 Encounter for genera l adult medical examination without abnormal findings [facility] 2025-05-01 10:22 Encounter for adjust ment and management of vascular access device [facility] 2025-05-14 15:04 Malignant neoplasm of bladder, unspecified [facility] 2025-05-16 11:09 Malignant neoplasm of bladder, unspecified [facility] 2025-05-16 11:09 [facility]ervicalgia [facility] 2025-05-16 11:09 Nausea [facility] 2025-05-16 11:09 Dysuria [facility] 2025-05-16 11:09 Hematuria, unspecified [facility] 2025-05-16 11:09 Retention of urine, unspecified [facility] 2025-05-16 11:09 [facility]icturition [facility] 2025-05-16 11:09 Dizziness and giddiness [facility] 2025-05-16 11:09 Fever, unspecified [facility] 2025-05-16 11:09 Laceration without f oreign body of left index finger without damage to nail, initial encounter [facility] 2025-05-17 07:23 Malignant neoplasm of bladder, unspecified [facility] 2025-05-29 09:46 Malignant neoplasm of prostate [facility] 2025-05-29 09:46 Malignant neoplasm of bladder n sh[facility] 2025-05-29 09:46 Malignant neoplasm of bladder, unspecified [facility] 2025-05-29 09:46 Dysuria [facility] 2025-05-29 09:47 Malignant neoplasm of prostate [facility] 2025-05-29 09:47 Malignant neoplasm of bladder n sh[facility]elle [facility] 2025-05-29 09:47 Malignant neoplasm of bladder, unspecified [facility] 2025-05-29 09:47 Dysuria [facility] 2025-06-02 12:41 Unspecified abdominal pain [facility] 2025-06-02 12:54 Unspecified abdominal pain [facility] 2025-06-03 20:17 Unspecified abdominal pain [facility] Results/Labs test date facility value unit notes Result panel 1 THYROID STIMULATING HORMONE 2025-03-12 08:02 [facility] 3.02 uiu/ml (missing) Result panel 2 NUCLEATED RED BLOOD CELLS AUTO 2025-03-12 08:09 [facility] 0.0 /100wbc (missing) BASOPHILS # (AUTO) 2025-03-12 08:09 [facility] 0.0 10 3/ul (missing) EOSINOPHILS # (AUTO) 2025-03-12 08:09 [facility] 0.0 10 3/ul (missing) NRBC ABSOLUTE COUNT (AUTO) 2025-03-12 08:09 [facility] 0.00 x10 3/ul (missing) BILIRUBIN,TOTAL 2025-03-12 08:09 [facility] 0.3 mg /dl As of April 2023 testing method has changed, this may include reference ranges. LYMPHOCYTES # (AUTO) 2025-03-12 08:09 [facility] 0.8 10 3/ul (missing) MONOCYTES # (AUTO) 2025-03-12 08:09 [facility] 1.2 10 3/ul (missing) CREATININE 2025-03-12 08:09 [facility] 1.3 mg/dl As of April 2023 testing method has changed, this may include reference ranges. MAGNESIUM 2025-03-12 08:09 [facility] 1.3 mg/dl As of April 2023 testing method has changed, this may include reference ranges. ALBUMIN/GLOBULIN RATIO 2025-03-12 08:09 [facility] 1.4 (missing) (missing) CHLORIDE 2025-03-12 08:09 [facility] 106 mmol/l As of April 2023 testing method has changed, this may include reference ranges. GLUCOSE 2025-03-12 08:09 [facility] 117 mg/dl As of April 2023 testing method has changed, this may include reference ranges. AST ASPARTATE AMINOTRANSFERASE 2025-03-12 08:09 [facility] 13 iu/l As of April 2023 testing method has changed, this may include reference ranges. SODIUM 2025-03-12 08:09 [facility] 139 mmol/l Unknown RED CELL DISTRIBUTION WIDTH 2025-03-12 08:09 [facility] 15.9 % (missing) PLT - PLATELET COUNT 2025-03-12 08:09 [facility] 151 10 3/ul (missing) BUN - BLOOD UREA NITROGEN 2025-03-12 08:09 [facility] 18 mg/dl As of Apr testing method has changed, this may include reference ranges. RED BLOOD COUNT 2025-03-12 08:09 [facility] 2.55 10 6/ul (missing) GLOBULIN 2025-03-12 08:09 [facility] 2.7 g/dl (missing) HCT - HEMATOCRIT 2025-03-12 08:09 [facility] 24.1 % (missing) CARBON DIOXIDE - CO2 2025-03-12 08:09 [facility] 26 mmol/l As of April 2023 testing method has changed, this may include reference ranges. NEUTROPHILS # (AUTO) 2025-03-12 08:09 [facility] 3.7 10 3/ul (missing) ALBUMIN 2025-03-12 08:09 [facility] 3.9 g/dl As of April 2023 testing method has changed, this may include reference ranges. MEAN CORPUSCULAR HEMOGLOBIN 2025-03-12 08:09 [facility] 30.6 pg (missing) MEAN CORPUSCULAR HGB CONC 2025-03-12 08:09 [facility] 32.4 g/dl (missing) POTASSIUM 2025-03-12 08:09 [facility] 4.1 mmol/l As of April 2023 testing method has changed, this may include reference ranges. WHITE BLOOD COUNT 2025-03-12 08:09 [facility] 5.7 x10 3/ul (missing) GFR - MDRD 2025-03-12 08:09 [facility] 55 (stephany rodriguez) Social History date description facility
[2025-06-03 21:44] LABS: HCT - HEMATOCRIT 29.7 % (42.0-52.0); HGB - HEMOGLOBIN 9.3 g/dL (14.0-18.0); MEAN PLATELET VOLUME 8.5 fL (7.4-11.4); NRBC ABSOLUTE COUNT (AUTO) 0.00 x10^3/uL; NUCLEATED RED BLOOD CELLS AUTO 0.0 /100WBC; PLT - PLATELET COUNT 334 10^3/uL (130-450); RED CELL DISTRIBUTION WIDTH 14.6 % (12.0-15.0)
[2025-06-03] MEDS: LACTATED RINGERS 1,000 ML IV STA (21:44)
[2025-06-03 22:01] LABS: ALT ALANINE AMINOTRANSFERASE 61.0 IU/L (10-60); AST ASPARTATE AMINOTRANSFERASE 27.0 IU/L (10-42); BUN - BLOOD UREA NITROGEN 49.0 mg/dL (6-20); CARBON DIOXIDE - CO2 19.0 mmol/L (21-32); CREATININE 3.3 mg/dL (0.6-1.3); GFR - MDRD 18.0 (>89)
[2025-06-04] MEDS: MORPHINE 2 MG/ML CARPUJECT IVP STA ×2 (00:45→05:52)
[2025-06-04] MEDS ORDERED: ONDANSETRON 4 MG/2 ML VIAL ONE (00:54)
[2025-06-04] MEDS: ONDANSETRON 4 MG/2 ML VIAL IVP STA ×2 (01:00→08:23)
[2025-06-04] MEDS: SODIUM CHLORIDE 0.9% 1,000 ML IV STA (01:00)
--- NOTE | 2025-06-04 07:06 | ED Physician Documentation ---
ED Addendum Addendum Addendum: I received sign out from the night time physician Dr. Espinoza. Apparently, failure to thrive is not an uncommon development after this procedure. His creatinine is improving this morning compared to last night. He is making urine. Acute renal failure seems unlikely. It seems appropriate to keep him in the hospital here for IV hydration for ANTHONY and failure to thrive. We will admit him to the hospital for these conditions. Discharge Plan Discharge Patient Disposition: 67 [facility] DC/Xfer Clinical Impression: ANTHONY (acute kidney injury), Acute hyperkalemia, Failure to thrive in adult, Vomiting Interventions: ED Admission Assessment Last Done: 06/04/25 09:20 Vitals documented within 30 minutes of discharge?: Yes
[2025-06-04 07:42] LABS: HCT - HEMATOCRIT 29.9 % (42.0-52.0); HGB - HEMOGLOBIN 9.4 g/dL (14.0-18.0); MEAN PLATELET VOLUME 8.4 fL (7.4-11.4); NRBC ABSOLUTE COUNT (AUTO) 0.00 x10^3/uL; NUCLEATED RED BLOOD CELLS AUTO 0.0 /100WBC; PLT - PLATELET COUNT 299 10^3/uL (130-450); RED CELL DISTRIBUTION WIDTH 14.7 % (12.0-15.0)
[2025-06-04 07:59] LABS: BUN - BLOOD UREA NITROGEN 43.0 mg/dL (6-20); CARBON DIOXIDE - CO2 20.0 mmol/L (21-32); CREATININE 3.0 mg/dL (0.6-1.3); GFR - MDRD 21.0 (>89)
--- NOTE | 2025-06-04 08:08 | ED Physician Documentation ---
ED Addendum Addendum Addendum: I received signout/turnover of care on this patient from MARYLOU Marin; please see her note for H&P. The patient was admitted to the [facility] 05/21/2025 and had inpatient stay for 1 week, during which time he underwent cystectomy and prostatectomy for bladder and prostate cancer. He had urostomy placed as well as a LAMBERT drain. The patient was treated and released from this emergency department yesterday; he presented to ED at that time for generalized weakness, nausea, poor appetite. His workup included blood tests and CT A/P. The CT was suggestive of ileus. Elevated BUN and creatinine noted on blood tests. The ED physician discussed the case with the on-call urologist at [facility]. (Dr. Broderick), plan was d/c home with return precautions. Patient returned [facility] for similar, ongoing complaints of generalized weakness, poor appetite with negligible p.o. intake all day today. At the time of turnover of care, results of laith's blood tests are pending. I followed up on these test results. Mild leukocytosis (WBC 11.4), and hemoglobin is 9.3 on the CBC. Potassium 5.4 (was 5.3 yesterday), BUN 49 (48 yesterday), and creatinine of 3.3 (2.8 yesterday). Previous results reflect baseline normal creatinine (mildly elevated 04/24/25 , result 1.5), but all other previous results were WNL. I then evaluated patient and discussed the test results with him. He is in NAD although I had ordered (and he had been given) 4 mg IV morphine after the ED RN informing that the patient was having abdominal pain. Patient tells me that this provided excellent analgesia. He indicates to me that he was having episodic cramping pain, similar to some discomfort he was having on his previous visit as well as other episodes since having undergone of the procedure at [facility]. He was also given 4 mg IV Zofran, as he had nausea with 1 episode of emesis shortly after the morphine was given. I contacted the urologist on-call for W., Dr. Broderick (with whom my colleague had spoken on yesterday's visit). We discussed laith's test results and presenting c/o and HPI. Dr. Broderick says that the re-admission rate for the procedure patient had undergone is approximately 25% and the most common reason for readmission is c/w patient's description of symptoms: poor appetite, nausea, malaise. Dr. Broderick says that these patients typically do well with inpatient IV hydration. He says that, at this time, he does not see need for transfer to . and that patient would be appropriate for admission to [facility], can recontact him if there are other questions or issues during his inpatient stay. Dr. Broderick recommends patient undergo kidney ultrasound when available to assess for hydronephrosis. I discussed this with the patient and he tells me he strongly prefers to stay at [facility] but would be agreeable to transfer if it were necessary. Discharge Plan Discharge Clinical Impression: ANTHONY (acute kidney injury), Acute hyperkalemia, Failure to thrive in adult, Vomiting Prescriptions: No Action albuterol sulfate [Ventolin HFA] 60 PUFFS/8 GM HFA aerosol inhaler 2 puff inhalation Q4H PRN (Reason: Wheezing) fluticasone propion-salmeterol [Advair Diskus] 1 EACH blister with device 1 ea IH BID Eliquis 5 mg tablet 2.5 mg PO DAILY telmisartan 20 mg tablet 20 mg PO DAILY oxycodone 5 mg Tablet See Rx Instructions .ROUTE .COMPLEX Qty: 10 0RF Rx Instructions: Take one tablet, by mouth, every 4 to 6 hours as needed for pain. omeprazole magnesium [[facility] (omeprazole)] 20 mg capsule,delayed release(DR/EC) 20 mg PO QDAY Print Language: Estonian Stand Alone Forms: PCP List
[2025-06-04] MEDS: LACTATED RINGERS 1,000 ML IV SCH ×2 (08:23→12:34)
[2025-06-04] MEDS ORDERED: SODIUM CHLORIDE FLUSH 0.9% 10 ML SYRINGE IVP PRN (09:38)
[2025-06-04] MEDS ORDERED: HYDROmorphone 0.5 MG/0.5 ML SYRINGE IVP PRN (11:07)
[2025-06-04] MEDS: SODIUM CHLORIDE FLUSH 0.9% 10 ML SYRINGE IVP SCH (11:30)
[2025-06-04] MEDS: HYDROmorphone 0.5 MG/0.5 ML SYRINGE IVP PRN (12:33)
[2025-06-04] MEDS: METOCLOPRAMIDE 10 MG/2 ML VIAL IVP SCH (12:33)
[2025-06-04] MEDS: ONDANSETRON 4 MG/2 ML VIAL IVP PRN (12:33)
[2025-06-04] MEDS: PANTOPRAZOLE 40 MG VIAL IVP SCH (12:33)
--- NOTE | 2025-06-04 12:57 | PHARMACY PROGRESS NOTE ---
Best Possible Medication History Admit Date and Time: 06/04/25 0847 Home Medications Medication Instructions Recorded Confirmed Type albuterol sulfate 90 mcg/actuation 1 puff inhalation P RN Wheezing 03/28/13 06/04/25 History aerosol inhaler (Ventolin HFA) fluticasone 250 mcg-salmeterol 50 1 inh inhalation BID 05/20/24 06/04/25 History mcg/dose blistr powdr for inhalation (Advair Diskus) omeprazole magnesium 20 mg 20 mg PO DAILY 12/26/2411/27 History capsule,delayed release (Acid Utilization Specialist (omeprazole)) telmisartan 20 mg tablet 20 mg PO DAILY 06/02/2511/27 History apixaban 2.5 mg tablet (Eliquis) 2.5 mg PO BID 5 06/04/25 History Processed by: Pharmacy Medications reviewed in ED?: Yes Medication History completed: Yes Patient Interview: Completed Secondary Source(s): Insurance records [facility] Statement: As the person ultimately responsible for medication therapy, providers are able to order a medication from an existing home medication list in [facility] via the "Reconcile Routine" prior to Confirmation of that medication by network desktop support specialist. Such practice is discouraged except when the physician, in their clinical judgment, deems that a medical need exists for a medication without regard to previous use.
--- NOTE | 2025-06-04 15:33 | HISTORY & PHYSICAL EXAMINATION ---
Chief Complaint Chief Complaint Chief Complaint: nausea History of Present Illness Admitted From Admitted From:: home History Obtained From Records Reviewed: EMR History obtained from: patient Exam Limitations: none History of Present Illness HPI Comment/Other: 74 yo M with pmhx of bladder cancer s/p cystectomy and ureteral diversion on 05/21/[address] 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 He was see in the ED on 06/02/25 where he was found to have ileus vs obstruction without focal transition point on CT. He was treated with iv fluids and discharged on oxycodone and supportive care. Pt reports continued symptoms and inability to tolerate much of any po. Feels nauseous when attempting to eat. Did not vomit at home. Reports intermittent crampy and stabbing pain in epigastric region and LLQ. Reports no BM for past few days, passing little flatus. Notes stool was brown after surgery, no melena or blood. Bad hiccups for past few days. In the ED, pt was found to have HR low 100s, afeb, 144/70. He was given IV fluid bolus. Upon arrival to the inpt unit he vomited dark black material that was gastroccult positive. Meds/Allgy Home Medications Ambulatory Orders Medication Instructions Recorded Confirmed albuterol sulfate 90 mcg/actuation 1 puff inhalation P RN Wheezing 03/28/13 06/04/25 aerosol inhaler (Ventolin HFA) fluticasone 250 mcg-salmeterol 50 1 inh inhalation BID 05/20/24 06/04/25 mcg/dose blistr powdr for inhalation (Advair Diskus) omeprazole magnesium 20 mg 20 mg PO DAILY 12/26/2411/27 capsule,delayed release (Acid Thread Milling Machine Set Up Operator (omeprazole)) telmisartan 20 mg tablet 20 mg PO DAILY 06/02/2511/27 apixaban 2.5 mg tablet (Eliquis) 2.5 mg PO BID 5 06/04/25 Allergies Allergies Allergy/AdvReac Type Severity Reaction Status Date / Time No Known Drug Allergies Allergy Verified 06/03/25 20:22 PFSH Active Problems All Active Problems (Updated 06/04/25 @ 17:49 by Carlos Villarreal MD) Vomiting (Acute) Failure to thrive in adult (Acute) Acute hyperkalemia (Acute) ANTHONY (acute kidney injury) (Acute) Abdominal pain (Acute) ANTHONY (acute kidney injury) (Acute) Generalized weakness (Acute) Adjustment and management of vascular access device (Acute) Recurrent UTI (Acute) Allergic rhinitis (Acute) Dysuria (Acute) Healthcare maintenance (Acute) Encounter for antineoplastic chemotherapy (Acute) Asthma (Acute) Bladder cancer (Acute) Bladder stones (Acute) Prostate cancer (Acute) Medical History Medical History (Updated 06/04/25 @ 17:49 by Carlos Villarreal MD) Mesothelioma COPD (chronic obstructive pulmonary disease) Osteoarthritis Wears glasses History of kidney stones UTI (urinary tract infection) Abdominal pain Gastritis Polyarthritis Tobacco abuse counseling Asthma exacerbation Viral URI Broken toe Colon cancer screening History of CVA (cerebrovascular accident) History of prostate cancer Surgical History Surgical History History of urostomy H/O prostatectomy H/O total cystectomy History of colonoscopy History of bilateral total hip arthroplasty History of lithotripsy History of transurethral resection of bladder tumor (TURBT) History of kidney removal Social History Social History (Updated 06/04/25 @ 14:49 by Mateo Marin DNP) Smoking Status: Smoker current status unk If you are a former smoker, when did you quit? (Date/Year): 2009 Number of Years Smoked: 40 How many cigarettes a day do you smoke? (20 cigarettes=1 Pk): 20 Second hand tobacco smoke exposure: No Do you dip or chew tobacco?: No Do you vape?: No Patient requests smoking cessation consult: No Initiate information on smoking cessation: No Level: Independent Do you feel safe in your home environment?: Yes History of physical, verbal, emotional, or financial abuse?: No Frequency: Daily Substance Use: denies use Are you sexually active?: Yes POLST Patient has POLST: No Review of Systems Status of ROS: 10 or more systems reviewed and unremarkable except as noted in history and below Exam Exam Vital Signs: Vital Signs x48h Temp Pulse Resp BP Pulse Ox 06/04/25 16:59 36.8 C 112 H 16 125/69 95 06/04/25 13:09 36.7 C 105 H 16 138/68 H 96 06/04/25 09:46 36.6 C 99 20 144/70 H 99 older man lying in bed, NAD, sclera anicteric, MMM LCTAB, nonlabored, RRR, S1S2, no edema abd soft, tender epigastric region, mild LLQ tenderness around LAMBERT drain site, no guarding, BS+ RLQ with ostomy and 2 drains, yellow clear urine in bag- site clean, no erythema LAMBERT drain draining clear strawcolored fluid in LLQ- site clean, no erythema Port L chest accessed c/d/i Conclusion/Plan Problem List (1) ANTHONY (acute kidney injury): (2) Vomiting: Qualifiers: Nausea presence: with nausea Vomiting type: unspecified Qualified Code(s): R11.2 - Nausea with vomiting, unspecified (3) Failure to thrive in adult: Plan 1. nausea, vomiting, hematemesis, hiccups, abdominal pain: Recent CT shows likely ileus, no obvious complications related to recent urologic procedure. Not clinically obstructed. Contributing factors to ileus include opioids, recent abdominal procedure, dehydration. H/H stable from yesterday and recent baseline Hgb 8-9. Therefore doubt significat GI bleed. Likely gastritis related to stress. Consider PUD. KUB today shows likely partial SBO. I discussed the case with his urologist, Dr. Ambrosio from . He suspects post op slow return of bowel function. Treatment will be aimed at relieving ileus and likely constipation. No s/s of infection. LLQ LAMBERT drain is a surgical drain. RLQ drain is a urostomy with stents in place. Pt ad ileal conduit created with ureteral diversion. - antiemetics and analgesics prn - per Dr. Ambrosio's recs, start gentle enemas and laxatives- will start with lactulose - monitor output from LAMBERT drain. When < 400 ml in 24 hrs, can remove drain, which will likely signfiicantly improve pt's symptoms and pain. - reglan scheduled for now for inractable hiccups - iv ppi - H/H q 12, transfuse if < 7 - NPO with sips and meds 2. ANTHONY: likely prerenal from poor po intake. No evidence for obstruction given ureteral stents. - LR 125 ml/hr 3. bladder cancer: Reportedly clear lymph nodes on recent cystectomy procedure. follows with Dr. Gayle at [facility]- may have post op adjuvant immunotherapy. Follows with Dr. Castaneda and Dr. Ambrosio from urology. - monitor 4. macrocytic anemia: likely due to recent chemo. H/H at recent baseline. - obtain B12, Fe studies dvt ppx: SCDs for now until GI bleed ruled out. Pt reports he was told to take apixaban 2.5 BID after discharge from recent surgery at . Unclear if this is for prophylactic reasons. Dispo plan and GOC: Came from home. Pending tolerance of po intake and improvement in ANTHONY. Lab Results Lab results reviewed: Yes 06/04/25 07:33 06/04/25 07:33 Diagnostic Imaging Results Diagnostic Imaging Results: positive Final report reviewed Core Measures Anticipated LOS I expect patient to be DC'd or transferred within 96 hours.: Yes DVT/VTE - Prophylaxis VTE/DVT Device ordered at admit?: No Not Ordered - Medical Reason: Contraindicated
--- NOTE | 2025-06-04 15:56 | XRAY Report ---
PROCEDURE: XR Abdomen 2 V INDICATIONS: vomiting, ileus, evaluate for obstruction TECHNIQUE: 2 views of the abdomen were acquired. COMPARISON: CT abdomen pelvis 06/02/2025 FINDINGS: Surgical changes and devices: Bilateral hip arthroplasties as well as ureterovesicular stents. Presumed peritoneal dialysis drain. Bowel: Dilated fluid-filled loops of bowel. Greatest measuring 4.4 cm. Air-fluid levels are present. Soft tissues: No masses; visualized solid organ contours appear normal in size. No suspicious abdominal calcifications. Bones: No suspicious bony abnormalities. IMPRESSION: Dilated loops of bowel as above most consistent with partial small bowel obstruction. Reviewed by: Tammy Hodges MD on 06/04/2025 3:55 PM PDT Approved by: Tammy Hodges MD on 06/04/2025 3:55 PM PDT Station ID: [id number]
[2025-06-04] MEDS: PROCHLORPERAZINE 10 MG/2 ML VIAL IVP PRN (16:43)
[2025-06-04] MEDS: BISACODYL 10 MG SUPP PR ONE (17:00)
[2025-06-04] MEDS: MINERAL OIL ENEMA 133 ML BOTTLE RC ONE (17:06)
[2025-06-04] MEDS: LACTULOSE 10 GM /15 ML UDC PO SCH (17:31)
[2025-06-04 18:42] LABS: HCT - HEMATOCRIT 29.8 % (42.0-52.0); HGB - HEMOGLOBIN 9.6 g/dL (14.0-18.0)
[2025-06-04 18:44] LABS: INR 1.1 (0.8-1.2); PT - PROTHROMBIN TIME 12.5 secs (9.9-12.6)
[2025-06-04] MEDS: FORMOTEROL FUMARATE NEB 20 MCG/2 ML INH SCH (22:30)
[2025-06-04] MEDS: BUDESONIDE 0.5 MG/2 ML NEB INH SCH (22:30)
[2025-06-04] MEDS: ACETAMINOPHEN 325 MG TABLET PO PRN (23:31)
[2025-06-05 04:40] LABS: HCT - HEMATOCRIT 26.8 % (42.0-52.0); HGB - HEMOGLOBIN 8.4 g/dL (14.0-18.0); MEAN PLATELET VOLUME 8.6 fL (7.4-11.4); NRBC ABSOLUTE COUNT (AUTO) 0.00 x10^3/uL; NUCLEATED RED BLOOD CELLS AUTO 0.0 /100WBC; PLT - PLATELET COUNT 316 10^3/uL (130-450); RED CELL DISTRIBUTION WIDTH 14.6 % (12.0-15.0)
[2025-06-05 04:58] LABS: % IRON SATURATION 20.0 % (20-50); ALT ALANINE AMINOTRANSFERASE 50.0 IU/L (10-60); AST ASPARTATE AMINOTRANSFERASE 29.0 IU/L (10-42); BUN - BLOOD UREA NITROGEN 45.0 mg/dL (6-20); CARBON DIOXIDE - CO2 21.0 mmol/L (21-32); CREATININE 2.9 mg/dL (0.6-1.3); GFR - MDRD 21.0 (>89); PHOSPHORUS 5.8 mg/dL (2.5-5.0)
[2025-06-05] MEDS: MINERAL OIL ENEMA 133 ML BOTTLE RC SCH (12:52)
--- NOTE | 2025-06-05 20:35 | PROVIDER PROGRESS NOTE ---
Assessment/Plan Problem List (1) ANTHONY (acute kidney injury): (2) Vomiting: Qualifiers: Nausea presence: with nausea Vomiting type: unspecified Qualified Code(s): R11.2 - Nausea with vomiting, unspecified (3) Failure to thrive in adult: Assessment/Plan: 74 yo M with pmhx of bladder cancer s/p cystectomy and ureteral diversion on 05/21/[address] 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 1. nausea, vomiting, hematemesis, hiccups, abdominal pain: Recent CT shows likely ileus, no obvious complications related to recent urologic procedure. Contributing factors to ileus include opioids, recent abdominal procedure, dehydration. Likely gastritis related to stress. Consider PUD. I discussed the case with his urologist, Dr. Ambrosio from . He suspects post op slow return of bowel function. Treatment will be aimed at relieving ileus and likely constipation. No s/s of infection. LLQ LAMBERT drain is a surgical drain. RLQ drain is a urostomy with stents in place. Pt had ileal conduit created with ureteral diversion. Mild drop in H/H today, likely some dilutional component and hematemesis. - antiemetics and analgesics prn - per Dr. Ambrosio's recs, start gentle enemas and laxatives - monitor output from LAMBERT drain. When < 400 ml in 24 hrs, can remove drain, which will likely signfiicantly improve pt's symptoms and pain. - reglan scheduled for now for inractable hiccups - iv ppi - H/H in am, transfuse if < 7 - NPO with sips and meds - iv tylenol and tramadol prn in hopes of limiting opioids. Dilaudid for breakthrough pain. - appreciate dietitian input- start PPN. Monitor K and phos closely. 2. ANTHONY: likely prerenal from poor po intake. No evidence for obstruction given ureteral stents. - mivf 3. bladder cancer: Reportedly clear lymph nodes on recent cystectomy procedure. follows with Dr. Gayle at [place]- may have post op adjuvant immunotherapy. Follows with Dr. Castaneda and Dr. Ambrosio from urology. - monitor 4. macrocytic anemia: likely due to recent chemo. H/H at recent baseline. B12 wnl, not Fe deficiency- Sat 20%. - monitor dvt ppx: SCDs for now until GI bleed ruled out. Pt reports he was told to take apixaban 2.5 BID after discharge from recent surgery at . Unclear if this is for prophylactic reasons. Dispo plan and GOC: Came from home. Pending tolerance of po intake and improvement in ANTHONY. Updated at bedside. Subjective: episodes of vomiting dark black material this am. Continued intermittent upper abdominal pain and nausea. No bleeding. No BM and no flatus overnight or this am. Current Meds Current Meds: Current Medications Generic Name Dose Route Start Last Admin Trade Name Freq PRN Reason Stop Dose Admin Acetaminophen 650 mg 06/04/25 09:38 06/05/25 17:26 Acetaminophen 325 Mg Tablet PO 650 mg Q4HR PRN Administration Pain 1 to 4, or Fever Albuterol 2.5 mg 06/04/25 17:05 Albuterol Neb 2.5 Mg/3 Ml INH RTQ4H PRN Wheezing Budesonide 0.5 mg 06/04/25 19:00 06/05/25 08:07 Budesonide 0.5 Mg/2 Ml Neb INH 0.5 mg RTBID BENJY Administration Formoterol Fumarate 20 mcg 06/04/25 19:00 06/05/25 08:08 Formoterol Fumarate Neb 20 Mcg/2 Ml INH 20 mcg RTBID BENJY Administration Guaifenesin 600 mg 06/05/25 12:29 Guaifenesin 600 Mg Tablet PO BID PRN Cough Hydromorphone HCl 0.5 mg 06/04/25 11:12 06/05/25 10:16 Hydromorphone 0.5 Mg/0.5 Ml Syringe IVP 0.5 mg Q4H PRN Administration Severe Pain (Level 7-10) Lactated Ringer's 1,000 mls @ 75 mls/hr 06/04/25 12:00 06/05/25 17:30 Lr IV 125 mls/hr .[id number] BENJY Administration Acetaminophen 1,000 mg in 100 mls @ 400 mls/hr 06/05/25 11:52 Acetaminophen IV Q6HR PRN Severe Pain (Level 7-10) Multivitamins 10 ml/ Zinc/ 2,037.5 mls @ 82.777 mls/hr 06/05/25 19:00 Copper/Manganese/Selenium 1 ml IV / Sodium Chloride 70 meq/ 1900 [facility] Magnesium Sulfate 2 gm/ Protocol Calcium Gluconate 500 mg/ Amino Acids/Dextrose Fat Emulsion Intravenous 250 mls @ 21 mls/hr 06/05/25 19:00 Intralipid 20% IV 1900 [facility] Lactulose 10 gm 06/04/25 18:00 06/05/25 08:23 Lactulose 10 Gm /15 Ml Udc PO 10 gm BID BENJY Administration Metoclopramide HCl 10 mg 06/04/25 13:00 06/05/25 17:26 Metoclopramide 10 Mg/2 Ml Vial IVP 10 mg Q6HR BENJY Administration Mineral Oil 133 ml 06/05/25 12:00 06/05/25 12:52 Mineral Oil Enema 133 Ml Bottle RC 133 ml BID BENJY Administration Ondansetron HCl 4 mg 06/04/25 11:07 06/05/25 10:16 Ondansetron 4 Mg/2 Ml Vial IVP 4 mg Q6HR PRN Administration Nausea / Vomiting Pantoprazole Sodium 40 mg 06/04/25 12:00 06/05/25 08:23 Pantoprazole 40 Mg Vial IVP 40 mg QDAC BENJY Administration Prochlorperazine Edisylate 10 mg 06/04/25 16:26 06/04/25 16:43 Prochlorperazine 10 Mg/2 Ml Vial IVP 10 mg Q6HR PRN Administration Nausea / Vomiting Sodium Chloride 10 ml 06/04/25 09:38 Sodium Chloride Flush 0.9% 10 Ml Syringe IVP PRN PRN NEEDED PER PROVIDER ORDERS Sodium Chloride 10 ml 06/04/25 09:38 06/05/25 16:05 Sodium Chloride Flush 0.9% 10 Ml Syringe IVP 10 ml 0100,0900,1700 BENJY Administration Tramadol HCl 50 mg 06/05/25 14:38 06/05/25 17:27 Tramadol 50 Mg Tablet PO 50 mg Q12H PRN Administration Moderate Pain (Level 4-6) Lab Result Lab results reviewed: Yes 06/05/25 04:25 06/05/25 04:25 Additional Planning My Orders: My Active Orders 06/05/25 ADMIT [Admission Order] Routine 06/05/25 08:11 RT [Nebulizer/MDI Tx.] [] .bid/q4prn 06/05/25 11:52 Acetaminophen 1,000 mg/100 ml [Acetaminophen] 1,000 mg in 100 ml IV Q6HR 06/05/25 11:54 Blood Glucose Checks - NPO [] 0600,1200,1800,0000 Daily Weight [RC] DAILY [facility] to Nursing [] [facility] 06/[facility] 12:00 Mineral Oil [Mineral Oil Enema] 133 ml RC BID 06/05/25 12:29 guaiFENesin [Mucinex] 600 mg PO BID PRN 06/05/25 14:38 traMADol [Ultram] 50 mg PO Q12H PRN 06/05/25 14:44 Daily Weight [RC] DAILY Initiate Hypoglycemia Protocol [RC] .protocol Nutrition Consult [CONS] Routine Message to Nursing [] [facility] 06/05/25 19:00 Fat Emulsion 20% [Intralipid 20%] 250 ml IV 1899 Multivitamin [Infuvite] 10 ml Trace Elements [Tralement Vial] 1 ml Sodium Chloride 23.4% [Sodium Chloride] 70 meq Magnesium Sulfate 2 gm Calcium Gluconate 500 mg Ppn (Clinimix 4.25/5) [Clinimix 4.25%-5% Solution] 2,000 ml IV 1900 06/06/25 05:00 COMPREHENSIVE METABOLIC PANEL [CHEM] Routine MAGNESIUM [CHEM] Routine PHOSPHORUS [CHEM] Routine PREALBUMIN [CHEM] Routine PT WITH INR [COAG] Routine 06/08/25 05:00 COMPREHENSIVE METABOLIC PANEL [CHEM] Routine MAGNESIUM [CHEM] Routine PHOSPHORUS [CHEM] Routine 06/10/25 05:00 PREALBUMIN [CHEM] Routine Objective Vital Signs: Vital Signs - 24 hr 06/04/25 20:40 06/04/25 21:49 06/04/25 23:31 Temperature Temperature Source Pulse Rate Pulse Rate [Brachial] Respiratory Rate Blood Pressure [Right Brachial artery] O2 Saturation O2 Source Sedation scale Pain Intensity 7 2 3 Pain Intensity [Bilateral Abdomen upper quadrant] 06/04/25 23:34 06/04/25 23:44 06/05/25 01:08 Temperature 36.6 C Temperature Source Temporal Artery Scan Pulse Rate Pulse Rate [Brachial] 114 H Respiratory Rate 18 Blood Pressure [Right Brachial artery] 145/74 H O2 Saturation 95 O2 Source Room air Sedation scale 0-Fully awake Pain Intensity 0 Pain Intensity [Bilateral Abdomen upper quadrant] 3 06/05/25 05:17 06/05/25 05:49 06/05/25 07:02 Temperature 36.6 C Temperature Source Temporal Artery Scan Pulse Rate Pulse Rate [Brachial] 104 H Respiratory Rate 16 Blood Pressure [Right Brachial artery] 127/67 O2 Saturation 96 O2 Source Room air Sedation scale 0-Fully awake Pain Intensity 3 7 3 Pain Intensity [Bilateral Abdomen upper quadrant] 06/05/25 08:00 06/05/25 08:10 06/05/25 08:14 Temperature 36.6 C Temperature Source Temporal Artery Scan Pulse Rate 84 Pulse Rate [Brachial] 107 H Respiratory Rate 20 20 Blood Pressure [Right Brachial artery] 100/70 O2 Saturation 96 O2 Source Room air Sedation scale 0-Fully awake Pain Intensity 0 Pain Intensity [Bilateral Abdomen upper quadrant] 2 06/05/25 10:16 06/05/25 11:45 06/05/25 12:00 Temperature Temperature Source Pulse Rate Pulse Rate [Brachial] Respiratory Rate Blood Pressure [Right Brachial artery] O2 Saturation O2 Source Sedation scale Pain Intensity 7 4 Pain Intensity [Bilateral Abdomen upper quadrant] 2 06/05/25 13:14 06/05/25 15:59 06/05/25 16:06 Temperature 36.7 C 36.8 C Temperature Source Temporal Artery Scan Temporal Artery Scan Pulse Rate Pulse Rate [Brachial] 93 86 Respiratory Rate 18 20 Blood Pressure [Right Brachial artery] 107/55 L 104/65 O2 Saturation 100 98 O2 Source Room air Room air Sedation scale 0-Fully awake 0-Fully awake Pain Intensity 0 0 7 Pain Intensity [Bilateral Abdomen upper quadrant] 06/05/25 17:26 06/05/25 17:27 Temperature Temperature Source Pulse Rate Pulse Rate [Brachial] Respiratory Rate Blood Pressure [Right Brachial artery] O2 Saturation O2 Source Sedation scale Pain Intensity 10 10 Pain Intensity [Bilateral Abdomen upper quadrant] Oxygen O2 Source Room air older man lying in bed, NAD, sclera anicteric, MMM LCTAB, nonlabored, RRR, S1S2, no edema abd soft, tender epigastric region, mild LLQ tenderness around LAMBERT drain site, no guarding, BS+ RLQ with ostomy and 2 drains, yellow clear urine in bag- site clean, no erythema LAMBERT drain draining clear strawcolored fluid in LLQ- site clean, no erythema Port L chest accessed c/d/i I&O (Last 24 Hrs): Intake and Output Totals x24h 06/03/25 06/04/25 06/05/25 23:59 23:59 23:59 Intake Total 3640 / 3640 2971 / 2971 Output Total 2110 / 2110 2305 / 2305 Balance 1530 / 1530 666 / 666 Results Results: Laboratory Results WBC 8.3 x10^3/uL (4.8-10.8) 06/05/25 04:25 RBC 2.78 10^6/uL (4.70-6.10) L 06/05/25 04:25 Hgb 8.4 g/dL (14.0-18.0) L 06/05/25 04:25 Hct 26.8 % (42.0-52.0) L 06/05/25 04:25 MCV 96.4 fL (80.0-94.0) H 06/05/25 04:25 MCH 30.2 pg (27.0-31.0) 06/05/25 04:25 MCHC 31.3 g/dL (32.0-36.0) L 06/05/25 04:25 RDW 14.6 % (12.0-15.0) 06/05/25 04:25 Plt Count 316 10^3/uL (130-450) 06/05/25 04:25 MPV 8.6 fL (7.4-11.4) 06/05/25 04:25 Neut # (Auto) 7.0 10^3/uL (1.5-6.6) H 06/05/25 04:25 Lymph # (Auto) 0.8 10^3/uL (1.5-3.5) L 06/05/25 04:25 [place] # (Auto) 0.4 10^3/uL (0.0-1.0) 06/05/25 04:25 Eos # (Auto) 0.0 10^3/uL (0.0-0.7) 06/05/25 04:25 Baso # (Auto) 0.0 10^3/uL (0.0-0.1) 06/05/25 04:25 Absolute Nucleated RBC 0.00 x10^3/uL 06/05/25 04:25 Nucleated RBC % 0.0 /100WBC 06/05/25 04:25 PT 12.5 secs (9.9-12.6) 06/04/25 18:21 INR 1.1 (0.8-1.2) 06/04/25 18:21 Sodium 134 mmol/L (135-145) L 06/05/25 04:25 Potassium 5.0 mmol/L (3.5-4.5) H 06/05/25 04:25 Chloride 102 mmol/L (101-111) 06/05/25 04:25 Carbon Dioxide 21 mmol/L (21-32) 06/05/25 04:25 Anion Gap 11.0 (6-13) 06/05/25 04:25 BUN 45 mg/dL (6-20) H 06/05/25 04:25 Creatinine 2.9 mg/dL (0.6-1.3) H 06/05/25 04:25 Estimated GFR (MDRD) 21 (>89) L 06/05/25 04:25 Glucose 109 mg/dL (74-104) H 06/05/25 04:25 POC Whole Bld Glucose 106 mg/dL (70-100) 06/05/25 18:16 Calcium 8.4 mg/dL (8.5-10.3) L 06/05/25 04:25 Phosphorus 5.8 mg/dL (2.5-5.0) H 06/05/25 04:25 Magnesium 2.2 mg/dL (1.7-2.3) 06/05/25 04:25 Iron 39 ug/dL (50-212) L 06/05/25 04:25 TIBC 196 ug/dL (250-450) L 06/05/25 04:25 % Saturation 20 % (20-50) 06/05/25 04:25 Transferrin 140 mg/dL (203-362) L 06/05/25 04:25 Ferritin 544.8 ng/mL (23.9-336.2) H 06/05/25 04:25 Total Bilirubin 0.2 mg/dL (0.2-1.0) 06/05/25 04:25 AST 29 IU/L (10-42) 06/05/25 04:25 ALT 50 IU/L (10-60) 06/05/25 04:25 Alkaline Phosphatase 82 IU/L (42-121) 06/05/25 04:25 Total Protein 5.5 g/dL (6.4-8.9) L 06/05/25 04:25 Albumin 2.9 g/dL (3.2-5.5) L 06/05/25 04:25 Globulin 2.6 g/dL (2.1-4.2) 06/05/25 04:25 Albumin/Globulin Ratio 1.1 (1.0-2.2) 06/05/25 04:25 Vitamin B12 426 pg/mL (180-914) 06/05/25 04:25 Blood Type A POSITIVE 06/04/25 18:21 Antibody Screen POSITIVE 06/04/25 18:21 Antibody Identification Anti-E Anti-Jka Warm Auto Antibody 06/04/25 18:21 Antibody Identification Anti-E Anti-Jka Warm Auto Antibody 06/04/25 18:21 Antibody Identification Anti-E Anti-Jka Warm Auto Antibody 06/04/25 18:21 JACQUIE, IgG Specific Not Reportable 06/04/25 18:21 JACQUIE, Polyspecific NEGATIVE 06/04/25 18:21 JACQUIE, C3d Specific Not Reportable 06/04/25 18:21 Procedures Procedures: Procedures CYSTOSCOPY NEC (04/09/13) Excision of Bladder Neck, Via Natural or Artificial Opening Endoscopic (12/10/24) Excision of Bladder, Via Natural or Artificial Opening Endoscopic (11/05/24) Extirpation of Matter from Bladder, Via Natural or Artificial Opening Endoscopic (11/05/24) Inspection of Lower Intestinal Tract, Via Natural or Artificial Opening Endoscopic (08/17/17) RADIOACTIVE SHAWNEE IMPLANT (04/09/13) Current Medications Current Medications Current Medications: Current Medications Generic Name Dose Route Start Last Admin Trade Name Freq PRN Reason Stop Dose Admin Acetaminophen 650 mg 06/04/25 09:38 06/05/25 17:26 Acetaminophen 325 Mg Tablet PO 650 mg Q4HR PRN Administration Pain 1 to 4, or Fever Albuterol 2.5 mg 06/04/25 17:05 Albuterol Neb 2.5 Mg/3 Ml INH RTQ4H PRN Wheezing Budesonide 0.5 mg 06/04/25 19:00 06/05/25 08:07 Budesonide 0.5 Mg/2 Ml Neb INH 0.5 mg RTBID BENJY Administration Formoterol Fumarate 20 mcg 06/04/25 19:00 06/05/25 08:08 Formoterol Fumarate Neb 20 Mcg/2 Ml INH 20 mcg RTBID BENJY Administration Guaifenesin 600 mg 06/05/25 12:29 Guaifenesin 600 Mg Tablet PO BID PRN Cough Hydromorphone HCl 0.5 mg 06/04/25 11:12 06/05/25 10:16 Hydromorphone 0.5 Mg/0.5 Ml Syringe IVP 0.5 mg Q4H PRN Administration Severe Pain (Level 7-10) Lactated Ringer's 1,000 mls @ 75 mls/hr 06/04/25 12:00 06/05/25 17:30 Lr IV 125 mls/hr .[id number] BENJY Administration Acetaminophen 1,000 mg in 100 mls @ 400 mls/hr 06/05/25 11:52 Acetaminophen IV Q6HR PRN Severe Pain (Level 7-10) Multivitamins 10 ml/ Zinc/ 2,037.5 mls @ 82.777 mls/hr 06/05/25 19:00 Copper/Manganese/Selenium 1 ml IV / Sodium Chloride 70 meq/ 1900 BENJY Magnesium Sulfate 2 gm/ Protocol Calcium Gluconate 500 mg/ Amino Acids/Dextrose Fat Emulsion Intravenous 250 mls @ 21 mls/hr 06/05/25 19:00 Intralipid 20% IV 1900 BENJY Lactulose 10 gm 06/04/25 18:00 06/05/25 08:23 Lactulose 10 Gm /15 Ml Udc PO 10 gm BID BENJY Administration Metoclopramide HCl 10 mg 06/04/25 13:00 06/05/25 17:26 Metoclopramide 10 Mg/2 Ml Vial IVP 10 mg Q6HR BENJY Administration Mineral Oil 133 ml 06/05/25 12:00 06/05/25 12:52 Mineral Oil Enema 133 Ml Bottle RC 133 ml BID BENJY Administration Ondansetron HCl 4 mg 06/04/25 11:07 06/05/25 10:16 Ondansetron 4 Mg/2 Ml Vial IVP 4 mg Q6HR PRN Administration Nausea / Vomiting Pantoprazole Sodium 40 mg 06/04/25 12:00 06/05/25 08:23 Pantoprazole 40 Mg Vial IVP 40 mg QDAC BENJY Administration Prochlorperazine Edisylate 10 mg 06/04/25 16:26 06/04/25 16:43 Prochlorperazine 10 Mg/2 Ml Vial IVP 10 mg Q6HR PRN Administration Nausea / Vomiting Sodium Chloride 10 ml 06/04/25 09:38 Sodium Chloride Flush 0.9% 10 Ml Syringe IVP PRN PRN NEEDED PER PROVIDER ORDERS Sodium Chloride 10 ml 06/04/25 09:38 06/05/25 16:05 Sodium Chloride Flush 0.9% 10 Ml Syringe IVP 10 ml 0100,0900,1700 BENJY Administration Tramadol HCl 50 mg 06/05/25 14:38 06/05/25 17:27 Tramadol 50 Mg Tablet PO 50 mg Q12H PRN Administration Moderate Pain (Level 4-6)
[2025-06-05] MEDS: PPN (CLINIMIX 4.25/5) 2,000 ML with MULTIVITAMIN 10 ML, TRACE ELEMENTS 1 ML, SODIUM CHL... IV SCH (20:41)
[2025-06-05] MEDS: FAT EMULSION 20% 250 ML IV SCH (20:42)
[2025-06-06] MEDS: ACETAMINOPHEN 1,000 MG/100 ML 1,000 MG/100 ML BAG IV PRN (00:52)
--- NOTE | 2025-06-06 01:39 | PROVIDER PROGRESS NOTE ---
Indian Nanny Note Indian Nanny Note Indian Nanny Note: per rn " Pt admitted for a small bowel obstruction, pt has not been able to eat anything since 05/21 and has lost over 10lbs. 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 Pt had orders for PPN and lipids that began at 2039. There is a message to nursing that states to only give the PPN through peripheral IV. Pt had had 6 pokes from 3 different nurses trying to start an IV tonight and all veins keep blowing. Called pharmacy who stated it should be fine to continue the nutrition through the right chest port. Can you please clarify if I may continue the PPN and lipids through his chest port? Thank you!" ok to continue via chest port
--- NOTE | 2025-06-06 03:57 | PROVIDER PROGRESS NOTE ---
Electrician Apprentice Powerhouse Note Electrician Apprentice Powerhouse Note Electrician Apprentice [employer]house Note: per nurse "Pt admitted for SBO after having a recent urostomy and bladder revision. Pt has scheduled reglan every 6 hours for hiccups, however pt has not been able to stop hiccuping since 1900. Is there any other meds such as thorazine that could be ordered. He is miserable and it is increasing his pain quite a bit." chlorpromazine x 1 dose protonix x 1 dose
[2025-06-06] MEDS ORDERED: SODIUM CHLORIDE 0.9% 0 ML IV ONE (04:04)
[2025-06-06] MEDS: chlorproMAZINE 25 MG in SODIUM CHLORIDE 0.9% 500 ML IV ONE (04:16)
[2025-06-06] MEDS: PANTOPRAZOLE 40 MG VIAL IV STA (04:16)
[2025-06-06 09:14] LABS: INR 1.1 (0.8-1.2); PT - PROTHROMBIN TIME 12.1 secs (9.9-12.6)
[2025-06-06 09:22] LABS: ALT ALANINE AMINOTRANSFERASE 48.0 IU/L (10-60); AST ASPARTATE AMINOTRANSFERASE 30.0 IU/L (10-42); BUN - BLOOD UREA NITROGEN 43.0 mg/dL (6-20); CARBON DIOXIDE - CO2 24.0 mmol/L (21-32); CREATININE 2.2 mg/dL (0.6-1.3); GFR - MDRD 29.0 (>89); PHOSPHORUS 2.7 mg/dL (2.5-5.0)
[2025-06-06] MEDS: ALBUTEROL NEB 2.5 MG/3 ML INH PRN (10:31)
--- NOTE | 2025-06-06 10:39 | XRAY Report ---
PROCEDURE: XR Abdomen 2 V INDICATIONS: ileus, evaluate bowel gas TECHNIQUE: 2 views of the abdomen were acquired. COMPARISON: CT abdomen pelvis on 06/02/2025 FINDINGS: Surgical changes and devices: Bilateral nephrogram urostomy tubes with pigtails overlying the superior renal shadows. No acute discontinuity. Surgical drain with tip in the right paramedian abdomen. Changes of bilateral total hip prostheses. Radiation seeds overlie the inferior pelvis. Bowel: Multiple air-filled, dilated, stacked loops of small bowel in the central abdomen. This is increased compared to 06/02/2025. Soft tissues: No masses; visualized solid organ contours appear normal in size. No suspicious abdominal calcifications. Bones: No suspicious bony abnormalities. IMPRESSION: Air-filled, dilated, stacked loops of bowel are concerning for ileus versus small bowel obstruction. Reviewed by: Singh Haque MD on 06/06/2025 10:38 AM PDT Approved by: Singh Haque MD on 06/06/2025 10:38 AM PDT Station ID: [id number]
[2025-06-06] MEDS: SENNA 8.6 MG TABLET PO SCH (15:02)
[2025-06-06] MEDS: LIDOCAINE JELLY 2% 6 ML JEL.PF.APP TOP ONE (16:33)
--- NOTE | 2025-06-06 18:07 | XRAY Report ---
PROCEDURE: XR Chest for Line Placement INDICATIONS: NGT placement TECHNIQUE: One view of the chest was acquired. COMPARISON: 03/22/2025. FINDINGS: Surgical changes and devices: Right chest Port-A-Cath. Interval placement of an NG tube, with its tip projected to the fundus of the stomach.. Lungs and pleura: No pleural effusions or pneumothorax. No consolidation. Mediastinum: Mediastinal contours appear normal. Heart size is normal. Bones and chest wall: No suspicious bony lesions. Overlying soft tissues appear unremarkable. IMPRESSION: No acute cardiopulmonary process. NG tube projects to fundus. Reviewed by: Kamaljit Felix MD on 06/06/2025 6:06 PM PDT Approved by: Kamaljit Felix MD on 06/06/2025 6:06 PM PDT Station ID: [id number]
--- NOTE | 2025-06-06 19:26 | PROVIDER PROGRESS NOTE ---
Subjective Prog Note Date Prog Note Date: 06/06/25 Prog Note Time: 11:00 Subjective Subjective: No BM, no flatus. Continued diffuse lower abd pain, improved. Nausea and dry heaving, no large volume vomit or hematemesis. Pt somnolent this am after dilaudid and tramadol. More awake and alert later in the afternoon. Current Medications Current Medications Current Medications: Current Medications Generic Name Dose Route Start Last Admin Trade Name Freq PRN Reason Stop Dose Admin Acetaminophen 650 mg 06/04/25 09:38 06/05/25 17:26 Acetaminophen 325 Mg Tablet PO 650 mg Q4HR PRN Administration Pain 1 to 4, or Fever Albuterol 2.5 mg 06/04/25 17:05 06/06/25 10:31 Albuterol Neb 2.5 Mg/3 Ml INH 2.5 mg RTQ4H PRN Administration Wheezing Budesonide 0.5 mg 06/04/25 19:00 06/06/25 10:31 Budesonide 0.5 Mg/2 Ml Neb INH 0.5 mg RTBID BENJY Administration Formoterol Fumarate 20 mcg 06/04/25 19:00 06/06/25 10:31 Formoterol Fumarate Neb 20 Mcg/2 Ml INH 20 mcg RTBID BENJY Administration Guaifenesin 600 mg 06/05/25 12:29 Guaifenesin 600 Mg Tablet PO BID PRN Cough Hydromorphone HCl 0.5 mg 06/06/25 19:21 Hydromorphone 0.5 Mg/0.5 Ml Syringe IVP Q6H PRN Severe Pain (Level 7-10) Lactated Ringer's 1,000 mls @ 75 mls/hr 06/04/25 12:00 06/06/25 04:23 Lr IV 75 mls/hr .[id number] BENJY Administration Acetaminophen 1,000 mg in 100 mls @ 400 mls/hr 06/05/25 11:52 06/06/25 18:56 Acetaminophen IV 400 mls/hr Q6HR PRN Administration Severe Pain (Level 7-10) Fat Emulsion Intravenous 250 mls @ 21 mls/hr 06/05/25 19:00 06/06/25 08:40 Intralipid 20% IV Infused 1900 BENJY Infusion Multivitamins 10 ml/ Zinc/ 2,011 mls @ 83 mls/hr 06/06/25 19:00 Copper/Manganese/Selenium 1 ml IV / Amino Ac/Electrol/Dextrose/ 1900 [facility] Calcium Protocol Lactulose 10 gm 06/04/25 18:00 06/06/25 11:05 Lactulose 10 Gm /15 Ml Udc PO 10 gm BID BENJY Administration Mineral Oil 133 ml 06/05/25 12:00 06/06/25 11:08 Mineral Oil Enema 133 Ml Bottle RC 133 ml BID BENJY Administration Ondansetron HCl 4 mg 06/04/25 11:07 06/06/25 16:45 Ondansetron 4 Mg/2 Ml Vial IVP 4 mg Q6HR PRN Administration Nausea / Vomiting Pantoprazole Sodium 40 mg 06/04/25 12:00 06/06/25 06:43 Pantoprazole 40 Mg Vial IVP Not Given QDAC [facility] Prochlorperazine Edisylate 10 mg 06/04/25 16:26 06/04/25 16:43 Prochlorperazine 10 Mg/2 Ml Vial IVP 10 mg Q6HR PRN Administration Nausea / Vomiting Senna 8.6 - 17.2 mg 06/06/25 14:10 06/06/25 15:02 Senna 8.6 Mg Tablet PO 8.6 mg DAILY BENJY Administration Sodium Chloride 10 ml 06/04/25 09:38 Sodium Chloride Flush 0.9% 10 Ml Syringe IVP PRN PRN NEEDED PER PROVIDER ORDERS Sodium Chloride 10 ml 06/04/25 09:38 06/06/25 18:43 Sodium Chloride Flush 0.9% 10 Ml Syringe IVP 10 ml 0100,0900,1700 BENJY Administration Objective Vital Signs/Intake & Output Reviewed Vital Signs: Yes Vital Signs: Vital Signs x48h Temp Pulse Resp BP Pulse Ox 06/06/25 17:00 36.7 C 89 18 130/59 L 95 06/06/25 12:14 37.1 C 114 H 20 116/62 96 Intake & Output: Intake & Output 06/03/25 06/04/25 06/05/25 06/06/25 23:59 23:59 23:59 23:59 Intake Total 3640 / 3640 3352 / 3352 1638 / 1638 Output Total 2110 / 2110 2630 / 2630 1790 / 1790 Balance 1530 / 1530 722 / 722 -152 / -152 Weight (kg) 63.2 kg 63 kg Objective Comments/Other: older man lying in bed, NAD, sclera anicteric, MMM LCTAB, nonlabored, RRR, S1S2, no edema abd soft, tender epigastric region, mild LLQ tenderness around LAMBERT drain site, no guarding, BS+ RLQ with ostomy and 2 drains, yellow clear urine in bag- site clean, no erythema, soft lump distending under incision below urostomy, mildly tender, reducible, no breakdown to surgical wound LAMBERT drain draining clear strawcolored fluid in LLQ- site clean, no erythema Port L chest accessed c/d/i Lab Results 06/05/25 04:25 06/06/25 08:50 Other Labs: Lab Results x24hrs 06/06/25 06/06/25 06/06/25 Range/Units 18:26 12:03 08:50 PT 12.1 (9.9-12.6) secs INR 1.1 (0.8-1.2) Sodium 133 L (135-145) mmol/L Potassium 4.0 (3.5-4.5) mmol/L Chloride 104 (101-111) mmol/L Carbon Dioxide 24 (21-32) mmol/L Anion Gap 5.0 L (6-13) BUN 43 H (6-20) mg/dL Creatinine 2.2 H (0.6-1.3) mg/dL Estimated GFR (MDRD) 29 L (>89) Glucose 136 H (74-104) mg/dL POC Whole Bld Glucose 129 143 (70-100) mg/dL Calcium 7.5 L (8.5-10.3) mg/dL Phosphorus 2.7 (2.5-5.0) mg/dL Magnesium 1.8 (1.7-2.3) mg/dL Total Bilirubin 0.2 (0.2-1.0) mg/dL AST 30 (10-42) IU/L ALT 48 (10-60) IU/L Alkaline Phosphatase 65 (42-121) IU/L Total Protein 4.8 L (6.4-8.9) g/dL Albumin 2.6 L (3.2-5.5) g/dL Globulin 2.2 (2.1-4.2) g/dL Albumin/Globulin Ratio 1.2 (1.0-2.2) Prealbumin 18 (17-34) mg/dL Blood Type Antibody Screen Antibody Identification JACQUIE, Polyspecific Crossmatch 06/06/25 06/05/25 06/04/25 Range/Units 05:33 23:38 18:21 PT (9.9-12.6) secs INR (0.8-1.2) Sodium (135-145) mmol/L Potassium (3.5-4.5) mmol/L Chloride (101-111) mmol/L Carbon Dioxide (21-32) mmol/L Anion Gap (6-13) BUN (6-20) mg/dL Creatinine (0.6-1.3) mg/dL Estimated GFR (MDRD) (>89) Glucose (74-104) mg/dL POC Whole Bld Glucose 134 132 (70-100) mg/dL Calcium (8.5-10.3) mg/dL Phosphorus (2.5-5.0) mg/dL Magnesium (1.7-2.3) mg/dL Total Bilirubin (0.2-1.0) mg/dL AST (10-42) IU/L ALT (10-60) IU/L Alkaline Phosphatase (42-121) IU/L Total Protein (6.4-8.9) g/dL Albumin (3.2-5.5) g/dL Globulin (2.1-4.2) g/dL Albumin/Globulin Ratio (1.0-2.2) Prealbumin (17-34) mg/dL Blood Type Antibody Screen Antibody Identification Warm Auto Antibody JACQUIE, Polyspecific NEGATIVE Crossmatch See Detail 06/04/25 06/04/25 Range/Units 18:21 18:21 PT (9.9-12.6) secs INR (0.8-1.2) Sodium (135-145) mmol/L Potassium (3.5-4.5) mmol/L Chloride (101-111) mmol/L Carbon Dioxide (21-32) mmol/L Anion Gap (6-13) BUN (6-20) mg/dL Creatinine (0.6-1.3) mg/dL Estimated GFR (MDRD) (>89) Glucose (74-104) mg/dL POC Whole Bld Glucose (70-100) mg/dL Calcium (8.5-10.3) mg/dL Phosphorus (2.5-5.0) mg/dL Magnesium (1.7-2.3) mg/dL Total Bilirubin (0.2-1.0) mg/dL AST (10-42) IU/L ALT (10-60) IU/L Alkaline Phosphatase (42-121) IU/L Total Protein (6.4-8.9) g/dL Albumin (3.2-5.5) g/dL Globulin (2.1-4.2) g/dL Albumin/Globulin Ratio (1.0-2.2) Prealbumin (17-34) mg/dL Blood Type A POSITIVE Antibody Screen POSITIVE Antibody Identification Anti-Jka Anti-E JACQUIE, Polyspecific Crossmatch Assessment/Plan Problem List (1) ANTHONY (acute kidney injury): (2) Vomiting: Qualifiers: Nausea presence: with nausea Vomiting type: unspecified Qualified Code(s): R11.2 - Nausea with vomiting, unspecified (3) Failure to thrive in adult: Impression: 74 yo M with pmhx of bladder cancer s/p cystectomy and ureteral diversion on 05/21/[address] 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 1. SBO, ileus, nausea, vomiting, hiccups, abdominal pain: Recent CT shows likely ileus, no obvious complications related to recent urologic procedure. Contributing factors to ileus include opioids, recent abdominal procedure, dehydration. Likely gastritis related to stress. Consider PUD. LLQ LAMBERT drain is a surgical drain. RLQ drain is a urostomy with stents in place. Pt had ileal conduit created with ureteral diversion. KUB shows SBO and clinically pt is obstructed with no flatus or BM. On review of CT with general surgery, it appears pt has facial defect with small bowel extending into it. I discussed the case with urology Dr. Conte from again today. She accepted pt for transfer to for continued treatment of SBO and possible surgical revision. - place NG tube and put on LIS - antiemetics and analgesics prn - limit opioids given sedation - per Dr. Ambrosio's recs, gentle enemas. Hold oral laxatives. - monitor output from LAMBERT drain. When < 400 ml in 24 hrs, can remove drain, which will likely signfiicantly improve pt's symptoms and pain. - NPO - appreciate dietitian input- PPN started 06/05. Switch to TPN today. 2. macrocytic anemia: likely due to recent chemo and hematemesis. H/H at recent baseline, around 8-9. B12 wnl, not Fe deficiency- Sat 20%. Mild drop in H/H today, likely some dilutional component and hematemesis, although vomiting has slowed down. - iv ppi - H/H in am, transfuse if < 7 3. ANTHONY: likely prerenal from poor po intake. No evidence for obstruction given ureteral stents. Cr improving. K and phos normalized. - mivf and TPN- LR at 50 ml 4. bladder cancer: Reportedly clear lymph nodes on recent cystectomy procedure. follows with Dr. Gayle at [facility]- may have post op adjuvant immunotherapy. Follows with Dr. Castaneda and Dr. Ambrosio from urology. - monitor dvt ppx: SCDs for now until GI bleed ruled out. Pt reports he was told to take apixaban 2.5 BID after discharge from recent surgery at . Unclear if this is for prophylactic reasons. Dispo plan and GOC: Came from home. Transfer to urology service. Updated at bedside and she agrees with plan.
--- NOTE | 2025-06-06 19:45 | Discharge Summary ---
"Discharge Summary Admit Date: 06/04/25 Discharge Date: 06/06/25 Discharging Provider: Paige Ralph PA-C/Carlos Villarreal MD Code Status: Attempt Resuscitation DIAGNOSES Discharge Diagnoses with Status of Each Condition: Postoperative small bowel obstruction, ileus, fascial dehiscence Acute kidney injury, present on admission Bladder cancer status post cystectomy with ureteral diversion on 05/21/[address] Ambrosio at Macrocytic anemia likely due to recent chemotherapy and hematemesis. Failure to thrive, last reliable p.o. intake was before urological procedure which was done on 05/21/2025. HPI History of Present Illness: 74 yo M with pmhx of bladder cancer s/p cystectomy and ureteral diversion on 05/21/[address] 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 He was see in the ED on 06/02/25 where he was found to have ileus vs obstruction without focal transition point on CT. He was treated with iv fluids and discharged on oxycodone and supportive care. Pt reports continued symptoms and inability to tolerate much of any po. Feels nauseous when attempting to eat. Did not vomit at home. Reports intermittent crampy and stabbing pain in epigastric region and LLQ. Reports no BM for past few days, passing little flatus. Notes stool was brown after surgery, no melena or blood. Bad hiccups for past few days. In the ED, pt was found to have HR low 100s, afeb, 144/70. He was given IV fluid bolus. Upon arrival to the inpt unit he vomited dark black material that was gastroccult positive. CONSULTS | PROCEDURES Procedures: CT abdomen pelvis 06/02: Small bowel ileus versus obstruction without focal transition point. Incisional hernia containing nonobstructed and likely reducible loop of small bowel. Otherwise postsurgical changes without evidence of postsurgical complication. 1 view abdominal x-ray 06/04: Dilated loops of bowel most consistent with partial small bowel obstruction Repeat abdominal x-ray 06/06: Progression of imaging showing air-filled dilated stacked loops of bowel concerning for ileus versus SBO Chest x-ray 06/06 no acute process in GE tube to fundus of stomach HOSPITAL COURSE Hospital Course: 74-year-old male who presented initially to our facility on June 02 with complaints of abdominal pain and difficulty eating status post above listed procedures, discharged from [facility] on May 29 after surgery on May 21. He was discharged from our emergency department on 02 June, returned on 03 June and then was admitted for failure to thrive. His case was discussed on hospital day 2 with his urologist, Dr. Ambrosio at the [facility] who suspected slow return of bowel function. Gentle enemas and laxatives were started he continued to have inability to tolerate oral intake and due to his lack of nutrition for quite some time PPN and then TPN was started. Case was reviewed with our general surgeon who examined and CT images and identified fascial defect with small bowel extending into it case was once again discussed with [facility] who accepted the patient in transfer. Laboratory Tests 03/22/25 03/27/25 04/24/25 05:12 07:35 09:40 WBC Hgb Creatinine 1.3 1.3 1.5 H 06/02/25 06/03/25 06/04/25 10:10 21:38 07:33 WBC 9.7 11.4 H 10.1 Hgb 9.3 L 9.3 L 9.4 L Creatinine 2.8 H 3.3 H 3.0 H 06/04/25 06/05/25 06/06/25 18:21 04:25 08:50 WBC 8.3 Hgb 9.6 L 8.4 L Creatinine 2.9 H 2.2 H ALLERGIES Allergies Allergy/AdvReac Type Severity Reaction Status Date / Time No Known Drug Allergies Allergy Verified 06/03/25 20:22 MEDICATIONS Ambulatory Orders Medication Instructions Recorded Confirmed albuterol sulfate 90 mcg/actuation 1 puff inhalation P RN Wheezing 03/28/13 06/04/25 aerosol inhaler (Ventolin HFA) fluticasone 250 mcg-salmeterol 50 1 inh inhalation BID 05/20/24 06/04/25 mcg/dose blistr powdr for inhalation (Advair Diskus) omeprazole magnesium 20 mg 20 mg PO DAILY 12/26/2411/27 capsule,delayed release ([employer] (omeprazole)) telmisartan 20 mg tablet 20 mg PO DAILY 06/02/25 0911/27 apixaban 2.5 mg tablet (Eliquis) 2.5 mg PO BID 5 06/04/25 PHYSICAL EXAM AT DISCHARGE Vital Signs: Vital Signs x48h Temp Pulse Resp BP Pulse Ox 06/06/25 17:00 36.7 C 89 18 130/59 L 95 06/06/25 12:14 37.1 C 114 H 20 116/62 96 Physical Exam Other/Comments: older man lying in bed, NAD, sclera anicteric, MMM LCTAB, nonlabored, RRR, S1S2, no edema abd soft, tender epigastric region, mild LLQ tenderness around LAMBERT drain site, no guarding, BS+ RLQ with ostomy and 2 drains, yellow clear urine in bag- site clean, no erythema, soft lump distending under incision below urostomy, mildly tender, reducible, no breakdown to surgical wound LAMBERT drain draining clear strawcolored fluid in LLQ- site clean, no erythema Port L chest accessed c/d/i LABS 06/05/25 04:25 06/06/25 08:50 TIME SPENT Time Spent in Discharge (Minutes): 45 Discharge Plan Discharge Patient Disposition: 02 Transfer Acute Care Hosp Prescriptions: No Action albuterol sulfate [Ventolin HFA] 60 PUFFS/8 GM HFA aerosol inhaler 1 puff inhalation PRN fluticasone propion-salmeterol [Advair Diskus] 1 EACH blister with device 1 inh inhalation BID telmisartan 20 mg tablet 20 mg PO DAILY Eliquis 2.5 mg tablet 2.5 mg PO BID omeprazole magnesium [[employer] (omeprazole)] 20 mg capsule,delayed release(DR/EC) 20 mg PO DAILY Print Language: Mohawk Follow-up Care: BRANDON MONTGOMERY ARNP [Primary Care Provider, Nurse Practitioner] Vitals documented within 30 minutes of discharge?: Yes"
[2025-06-06] MEDS: LACTATED RINGERS 1,000 ML IV SCH (20:36)
[2025-06-06] MEDS: TPN (CLINIMIX E 5/15) 2,000 ML with MULTIVITAMIN 10 ML, TRACE ELEMENTS 1 ML IV SCH (20:36)
[2025-06-06] MEDS: HYDROmorphone 0.5 MG/0.5 ML SYRINGE IVP PRN (21:58)
[2025-06-06 22:10] VITALS: BP 137/62; TEMP 98.6; O2SAT 97
== END 2025-06-06 22:45 | disposition short-term general hospital (02) | DRG 389 ==
LOC: MS2 20:13 → ED 20:13 → MS2 06-04 09:20
PROVIDERS: ADMIT Student in an Organized Health Care Education/Training Program; ATTEND Student in an Organized Health Care Education/Training Program
DX: D72.829 Elevated white blood cell count, unspecified; C67.9 Malignant neoplasm of bladder, unspecified; N17.9 Acute kidney failure, unspecified; D64.81 Anemia due to antineoplastic chemotherapy; T40.2X5A Adverse effect of other opioids, initial encounter; Z86.73 Personal history of transient ischemic attack (TIA), and cerebral infarction without residual deficits; Z90.6 Acquired absence of other parts of urinary tract; J44.9 Chronic obstructive pulmonary disease, unspecified; Z79.01 Long term (current) use of anticoagulants; T45.1X5A Adverse effect of antineoplastic and immunosuppressive drugs, initial encounter; K56.7 Ileus, unspecified; Z79.899 Other long term (current) drug therapy; Z92.3 Personal history of irradiation; Z92.21 Personal history of antineoplastic chemotherapy; Z90.79 Acquired absence of other genital organ(s); K92.0 Hematemesis; Z68.20 Body mass index [BMI] 20.0-20.9, adult; J44.89 Other specified chronic obstructive pulmonary disease; Z87.891 Personal history of nicotine dependence; D50.0 Iron deficiency anemia secondary to blood loss (chronic); D53.9 Nutritional anemia, unspecified; E87.5 Hyperkalemia; Z96.0 Presence of urogenital implants; E86.0 Dehydration; R62.7 Adult failure to thrive; C61 Malignant neoplasm of prostate